=== PATIENT | female | born 1990 ===

== ENCOUNTER 2019-08-17 09:05 | Emergency (ER) | payer MEDICAID ==
--- NOTE | 2019-08-17 09:39 | Emergency Department Report ---
Minor Respiratory - HPI Chief Complaint: Headache Stated Complaint: LFT SIDE NUMB/HEADACHE Time Seen by Provider: 08/17/19 09:27 Duration: 2 Days Pain Location: Facial, Other (headache left forehead and religious) Severity: severe Minor Respiratory: Yes Rhinorrhea, Yes Able to Tolerate Fluids, Yes Ear Pain, Yes Cough, Yes Fever (no temperature taken and she feels that she has chills), No Sore Throat, No Sick Contacts, No Hemoptysis, No Chest Pain, No Shortness of Breath Other History: This is a 29-year-old female here report that she is 4 weeks and and she has an appointment at [facility] and she feels like she has the flu with headache on the left side of her face, forehead and religious area and generalized body ache, she reports that last menstrual period was 07/02/2019. vitamins started. Denies any abdominal pain, back pain, urinary burning, frequency or urgency or any vaginal bleeding. Patient reports that she feels congested like she has the flu. Denies any neck stiffness or sore throat. Headache and facial pain is achy and constant. No medication taken prior to coming to the emergency room ED Review of Systems ROS: Stated complaint: LFT SIDE NUMB/HEADACHE Other details as noted in HPI Constitutional: chills. denies: fever ENT: ear pain. denies: throat pain (no) Respiratory: cough. denies: shortness of breath, SOB with exertion, SOB at rest, stridor, wheezing Cardiovascular: denies: chest pain, palpitations, dyspnea on exertion, edema, syncope, paroxysmal nocturnal dyspnea Gastrointestinal: denies: abdominal pain, nausea, vomiting, constipation, hematemesis, hematochezia Musculoskeletal: arthralgia. denies: back pain, joint swelling, myalgia Skin: denies: rash Neurological: denies: headache, numbness, paresthesias, confusion, abnormal gait, vertigo ED Past Medical Hx - Past Medical History Previous Medical History?: Yes Hx Diabetes: Yes - Surgical History Past Surgical History?: No - Family History Family history: no significant - Social History Smoking Status: Never Smoker Substance Use Type: None - Medications Home Medications: Home Medications Medication Instructions Recorded Confirmed Last Taken Type Acetaminophen [Acetaminophen TAB] 500 mg PO Q8HR PRN #12 tablet 08/17/19 Unknown Rx Amoxicillin [Amoxicillin TAB] 875 mg PO BID Days #20 tablet 08/17/19 Unknown Rx Loratadine [Claritin] 10 mg PO QDAY 7 Days #7 tablet 08/17/19 Unknown Rx Minor Respiratory Exam - Exam General: Vital signs noted. No distress. Alert and acting appropriately. 29-year-old patient well-nourished well-developed in no acute distress. HEENT: Yes Moist Mucous Membranes, Yes Rhinorrhea (enabled turbinates are enlarged with clear drainage), Yes Frontal Tenderness (left), Yes Maxillary Tenderness (left), No Pharyngeal Erythema, No Pharyngeal Exudates, No Conjuctival Injection Ear: Neither TM Bulge (bilateral middle ear effusion), Neither TM Erythema, Neither EAC Pain, Neither EAC Discharge Neck: Yes Supple (full range of motion), No Adenopathy Lungs: Yes Good Air Exchange, Yes Cough (dry cough), No Wheezes, No Ronchi, No Stridor, No Labored Respirations, No Retractions, No Use of Accessory Muscles, No Other Abnormal Lung Sounds Heart: Yes Regular, No Murmur Abdomen: Yes Normal Bowel Sounds (nontender to palpate and no CVA tenderness.), No Tenderness, No Peritoneal Signs Skin: Yes Edema, No Rash Neurologic: Alert and oriented, no deficits. Normal exam. Patient is alert and oriented 3 GCS of 15, normal gait, normal speech and no facial asymmetry. Musculoskeletal: Unremarkable. No cce. + 2 pulses in all extremities, no neurovascular compromise ED Course Vital Signs 08/17/19 09:19 Temperature 98.2 F Pulse Rate 94 H Respiratory 20 Rate Blood Pressure 129/50 O2 Sat by Pulse 98 Oximetry - Reevaluation(s) Reevaluation #1: 08/17/19 10:38 Patient was given Tylenol 3 2 tablets, Benadryl 50 mg by mouth, and Decadron 10 mg IM in emergency room. Patient says she is feeling better. ED Medical Decision Making - Medical Decision Making This is a 29-year-old female patient that is 4 weeks and here with sinusitis with facial pain and headache. Patient states was given Decadron in emergency room along with Tylenol No. 3 2 tablets and Benadryl 50 mg by mouth. Up and evaluation she says she is feeling a lot better. Headache is on 11/30 and no facial pain. I explained to patient her diagnosis that she needs to follow- up with [facility] to call tomorrow to schedule an appointment. Patient discharged home with prescription for Claritin and, amoxicillin and instructed to flush her sinuses out with saline nasal spray 3 times a day. She voiced understanding and discharged home in stable condition - Differential Diagnosis sinusitis versus rhinitis versus migraine headache Critical care attestation.: If time is entered above; I have spent that time in minutes in the direct care of this critically ill patient, excluding procedure time. ED Disposition Clinical Impression: Sinusitis, acute Qualifiers: Sinusitis location: pansinusitis Recurrence: non-recurrent Qualified Code(s): J01.40 - Acute pansinusitis, unspecified Headache Qualifiers: Headache type: unspecified Headache chronicity pattern: acute headache Intractability: not intractable Qualified Code(s): R51 - Headache Disposition: DC- TO HOME OR SELFCARE Is pt being admited?: No Does the pt Need Aspirin: No Condition: Stable Instructions: Sinusitis (ED) Additional Instructions: Please take medication as prescribed Increasing fluid intake Flush nostrils with nasal saline wash If you condition worsens, return to the emergency room. Referrals: [facility] [Outside] - 08/18/19 PRIMARY CARE, [Primary Care Provider] - 08/18/19 Forms: Work/School Release Form(ED)
[2019-08-17] MEDS ORDERED: ACETAMINOPHEN W/CODEINE 300-30 MG TAB PO ONE (09:40)
[2019-08-17] MEDS ORDERED: AMOXICILLIN 500 MG CAP PO ONE (09:42)
[2019-08-17] MEDS ORDERED: diphenhydrAMINE 50 MG CAP PO NR (10:00)
[2019-08-17] MEDS ORDERED: diphenhydrAMINE 25 MG CAP PO ONE (10:12)
[2019-08-17 12:31] VITALS: BP 115/83
== END 2019-08-17 12:31 | disposition home or self-care (01) ==
LOC: ED 09:05
DX: J01.90 Acute sinusitis, unspecified (principal); E11.9 Type 2 diabetes mellitus without complications; Z79.899 Other long term (current) drug therapy

== ENCOUNTER 2020-03-15 10:26 | Inpatient (IN) | payer MEDICAID ==
[2020-03-15] MEDS ORDERED: TERBUTALINE 1 MG/1 ML INJ SUB-Q PRN (10:54)
[2020-03-15] MEDS ORDERED: LIDOCAINE (2%) 20 MG/1 ML VIAL 20 ML MDV INFILTRATI ONE (10:54)
[2020-03-15] MEDS ORDERED: ePHEDrine SULFATE 50 MG/1 ML INJ IV PRN (10:54)
[2020-03-15] MEDS ORDERED: AMPICILLIN/NS 2 GM/100 ML 2 GM/100 ML BAG IV ONE (10:54)
[2020-03-15] MEDS ORDERED: OXYTOCIN 20 UNIT/1000ML DRIP 20 UNITS/1,000 ML BAG IV SCH (11:00)
[2020-03-15] MEDS ORDERED: OXYTOCIN DRIP 30 UNITS/500 ML BAG IV SCH (11:00)
[2020-03-15] MEDS ORDERED: ONDANSETRON 4 MG/2 ML INJ IV PRN (11:30)
--- NOTE | 2020-03-15 12:05 | History and Physical Report ---
History of Present Illness Date of examination: 03/15/20 Chief complaint: decreased movement x2 days, possible leaking of fluid since 0900 History of present illness: EDC Calculations LMP: 04/07/2020 Past History : 7 Term Births: 4 Premature Births: 1 Living Children: 4 Para: 4 Mult. Births: 0 Prev : 0 Aborta: 0 Elect. Ab: 0 Spont. Ab: 1 Ectopics: 0 # 1 Delivery date: 12/28/2005 Weeks Gestation: 40 labor: no Delivery type: Delivery location: [place] Infant Sex: Female weight: 6#0oz Name: Ivory # 2 Delivery date: 2006 Weeks Gestation: 7 Delivery type: SAB Delivery location: [place] # 3 Delivery date: 02/28/2011 Weeks Gestation: 20 labor: yes Sex: Male # 4 Delivery date: 08/19/2012 Weeks Gestation: 38 labor: no Delivery type: Anesthesia type: epidural Delivery location: [place] Inf[place] Sex: Male weight: 7#0oz Name: Nicholas # 5 Delivery date: 01/13/2014 Weeks Gestation: 38 labor: no Delivery type: Anesthesia type: epidural Delivery location: [place] Inf[facility] Sex: Female weight: 7# Name: Inocencia # 6 Delivery date: 03/18/2016 Weeks Gestation: 38 labor: no Delivery type: Anesthesia type: none Delivery location: [place] Inf[facility] Sex: Male weight: 8#11 Name: Mati Past Medical History: Diabetes Sinus infection with fever- July 2019 Past Surgical History: Bilateral foot surgery- 5th toe Past Medical History Diabetes: yes Surgery (Non-obgyn hospitalist physician): Bilateral foot surgery- 5th toe Abnormal PAP: negative NILTON Exposure: negative Infertility: negative Uterine Anomaly: negative Uterine Surgery (not C/S): negative Other Gynecologic Problems: negative Family Hx: DM- uncle, mother HTN- mother, maternal aunt Social Hx: Single, 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 of genital herpes: no Partner hx. of genital herpes: no Rash, Viral, or Febrile illness since last LMP? yes Varicella/Chicken Pox Status: Immunized TB Risk: yes Infection History Comments: TB + (2006)- 9 months of antibiotics, chest x-ray every 7 years- do not remember when she had her last xray Genetic History Congenital Heart Defect: Mom: no Dad: unknown Leana Disease: Mom: no Dad: unknown Thalassemia Mom: no Dad: unknown Neural Tube Defect Mom: no Dad: unknown Down's Syndrome Mom: no Dad: unknown Keith-Sachs Mom: no Dad: unknown Sickle Cell Disease/Trait Mom: no Dad: unknown Hemophilia Mom: no Dad: unknown Muscular Dystrophy Mom: no Dad: unknown Cystic Fibrosis Mom: no Dad: unknown Summers Chorea Mom: no Dad: unknown Mental Retardation Mom: no Dad: unknown Fragile X Mom: no Dad: unknown Other Genetic/Chromosomal Disorder Mom: no Dad: unknown Child w/other defect Mom: no Dad: unknown Enviromental Exposures Xray Exposure: no Medication, drug, or alcohol use since LMP: yes Chemical/Other Exposure: no Exposure to Cat Liter: no Hx of Parvovirus (Fifth Disease): no Occupational Exposure to Children: none Current Allergies (reviewed today): No known allergies Past History Past Medical History: other Past Surgical History: other (see HPI) GEOLOGY INSTRUCTOR History: other (see HPI) Family/Genetic History: other (see HPI) - Obstetrical History Expected Date of Delivery: 04/07/20 Actual Gestation: 36 Week(s) 5 Day(s) : 7 Para: 5 Hx # Term Pregnancies: 4 Number of Pregnancies: 1 Spontaneous Abortions: 1 Induced : 0 Number of Living Children: 4 Medications and Allergies Allergies Allergy/AdvReac Type Severity Reaction Status Date / Time No Known Allergies Allergy Unverified 08/17/19 09:10 Home Medications Medication Instructions Recorded Confirmed Last Taken Type Amoxicillin [Amoxicillin TAB] 875 mg PO BID 10 Days #20 tablet 08/17/19 03/15/20 Unknown Rx Loratadine (Nf) [Claritin] 10 mg PO QDAY 7 Days #7 tablet 08/17/19 03/15/20 Unknown Rx RX: Acetaminophen [Acetaminophen 500 mg PO Q8HR PRN #12 tablet 08/17/19 03/15/20 Unknown Rx TAB] Active Meds: Active Medications Ephedrine Sulfate (Ephedrine Sulfate) 10 mg IV Q2M PRN PRN Reason: Hypotension Fentanyl (Sublimaze) 100 mcg IV Q2H PRN PRN Reason: Pain,Severe (7-10) LABOR PAIN Oxytocin/Sodium Chloride (Pitocin/Ns 20 Unit/1000ml Drip) 20 units in 1,000 mls @ 125 mls/hr IV DIRECT MARIEL Oxytocin/Sodium Chloride (Pitocin/Ns 30 Unit/500ml) 30 units in 500 mls @ 4 mls/hr IV TITR MARIEL; Protocol Lactated Ringer's (Lactated Ringers) 1,000 mls @ 125 mls/hr IV DIRECT MARIEL Ampicillin Sodium (Ampicillin/Ns 1 Gm/50 Ml) 1 gm in 50 mls @ 100 mls/hr IV Q4H MARIEL; Protocol Mineral Oil (Mineral Oil) 30 ml PO QHS PRN PRN Reason: Constipation Ondansetron HCl (Zofran) 4 mg IV Q8H PRN PRN Reason: Nausea And Vomiting Terbutaline Sulfate (Brethine) 0.25 mg SUB-Q ONCE PRN PRN Reason: Hyperstimulation/Hypertonicity Stop: 03/15/20 23:59 Review of Systems All systems: negative - Vital Signs Vital signs: Vital Signs Temp Resp 97.9 F 18 03/15/20 11:22 03/15/20 11:22 Temp Pulse Resp BP Pulse Ox 97.9 F 77 18 120/59 03/15/20 11:22 03/15/20 11:35 03/15/20 11:22 03/15/20 11:35 - Physical Exam Breasts: Positive: normal Cardiovascular: Regular rate Lungs: Positive: Clear to auscultation, Normal air movement Abdomen: Positive: normal appearance, soft, normal bowel sounds Genitourinary (Female): Positive: normal external genitalia, normal perenium Vulva: both: normal Vagina: Positive: normal moisture Uterus: Positive: normal size, normal contour Anus/Rectum: Positive: normal perianal skin Extremities: Positive: normal Deep Tendon Reflex Grade: Normal +2 - Obstetrical FHR: category 1 Uterine Contraction Monitor Mode: External Cervical Dilatation: 1 Cervical Effacement Percentage: 50 station: -2 Uterine Contraction Frequency (min): irritability Uterine Tone Measurement Phase: Resting Uterine Contraction Intensity: Mild Results Result Diagrams: 03/15/20 11:48 03/15/20 11:48 Abnormal lab results 03/15/20 Range/Units 11:54 POC Glucose 109 H (70-105) All other labs normal. Assessment and Plan patient c/o leaking vaginal fluid since 0900 today, none noted during SVE. Per Dr. Hammer with [facility], pt is now dx with pre-e and should be delivered. GBS neg. Admission orders in EMR, will Induce with Pitocin. Epidural when patient is making cervical change. - Patient Problems (1) Diabetes mellitus type 2 in obese Current Visit: Yes Status: Acute Plan to address problem: on insulin will monitor blood sugars q2 hrs (2) Pre-eclampsia Current Visit: Yes Status: Acute Qualifiers: Trimester: third trimester Qualified Code(s): O14.93 - Unspecified pre- eclampsia, third trimester Plan to address problem: IOL pre-e labs Mag sulfate during labor and 24hr post delivery (3) 36 weeks gestation of Current Visit: Yes Status: Acute (4) Decreased movement Current Visit: Yes Status: Acute Qualifiers: Fetus number: single or unspecified fetus Trimester: third trimester Qualified Code(s): O36.8130 - Decreased movements, third trimester, not applicable or unspecified
[2020-03-15] MEDS: LACTATED RINGERS 1,000 ML IV SCH ×3 (12:10→23:04)
[2020-03-15 12:14] LABS: Hematocrit 30.1 % (30.3-42.9); Hemoglobin 9.9 gm/dl (10.1-14.3); Mean Corpuscular HGB Conc 33 % (30-34); Mean Corpuscular Volume 82 fl (79-97); Platelet Count 275 K/mm3 (140-440); Red Blood Count 3.69 M/mm3 (3.65-5.03); Red Cell Distribution Width 14.8 % (13.2-15.2)
[2020-03-15 12:27] LABS: Alanine Aminotransferase 7 units/L (7-56); Uric Acid 4.2 mg/dL (3.5-7.6)
[2020-03-15] MEDS: fentaNYL 100 MCG/2 ML INJ IV PRN ×2 (12:53→21:02)
[2020-03-15] MEDS ORDERED: AMPICILLIN/NS 1 GM/50 ML 1 GM/50 ML BAG IV SCH (15:00)
--- NOTE | 2020-03-15 17:18 | Progress Note ---
Assessment and Plan no change in SVE since admission, pitocin infusing @ 20mU with regular ctx 1-3 minutes. will d/c pitocin tonight, allow diet and then do low dose pitocin overnight. plan discussed with patient, all questions addressed. pt denies CHEUNG, epigastric pain or visual changes. - Patient Problems (1) Diabetes mellitus type 2 in obese Current Visit: Yes Status: Acute Plan to address problem: on insulin will monitor blood sugars fasting, AC & HS consistent carb diet for dinner (2) Pre-eclampsia Current Visit: Yes Status: Acute Qualifiers: Trimester: third trimester Qualified Code(s): O14.93 - Unspecified pre- eclampsia, third trimester Plan to address problem: IOL pre-e labs Mag sulfate during labor and 24hr post delivery (3) 36 weeks gestation of Current Visit: Yes Status: Acute (4) Decreased movement Current Visit: Yes Status: Acute Qualifiers: Fetus number: single or unspecified fetus Trimester: third trimester Qualified Code(s): O36.8130 - Decreased movements, third trimester, not applicable or unspecified Subjective - Subjective Date of service: 03/15/20 Principal diagnosis: IUP @ 36+5wks: IOL for mild pre-e, DM type 2 Interval history: EDC Calculations LMP: 04/07/2020 Past History : 7 Term Births: 4 Premature Births: 1 Living Children: 4 Para: 4 Mult. Births: 0 Prev : 0 Aborta: 0 Elect. Ab: 0 Spont. Ab: 1 Ectopics: 0 # 1 Delivery date: 12/28/2005 Weeks Gestation: 40 labor: no Delivery type: Delivery location: [place] Infant Sex: Female weight: 6#0oz Name: Ivory # 2 Delivery date: 2006 Weeks Gestation: 7 Delivery type: SAB Delivery location: [place] # 3 Delivery date: 02/28/2011 Weeks Gestation: 20 labor: yes Sex: Male # 4 Delivery date: 08/19/2012 Weeks Gestation: 38 labor: no Delivery type: Anesthesia type: epidural Delivery location: [place] Infant Sex: Male weight: 7#0oz Name: Nicholas # 5 Delivery date: 01/13/2014 Weeks Gestation: 38 labor: no Delivery type: Anesthesia type: epidural Delivery location: [place] Sex: Female weight: 7# Name: Inocencia # 6 Delivery date: 03/18/2016 Weeks Gestation: 38 labor: no Delivery type: Anesthesia type: none Delivery location: [place] Infant Sex: Male weight: 8#11 Name: Mati Past Medical History: Diabetes Sinus infection with fever- July 2019 Past Surgical History: Bilateral foot surgery- 5th toe Past Medical History Diabetes: yes Surgery (Non-restaurant area director): Bilateral foot surgery- 5th toe Abnormal PAP: negative NILTON Exposure: negative Infertility: negative Uterine Anomaly: negative Uterine Surgery (not C/S): negative Other Gynecologic Problems: negative Family Hx: DM- uncle, mother HTN- mother, maternal aunt Social Hx: Single, 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 of genital herpes: no Partner hx. of genital herpes: no Rash, Viral, or Febrile illness since last LMP? yes Varicella/Chicken Pox Status: Immunized TB Risk: yes Infection History Comments: TB + (2006)- 9 months of antibiotics, chest x-ray every 7 years- do not remember when she had her last xray Genetic History Congenital Heart Defect: Mom: no Dad: unknown Leana Disease: Mom: no Dad: unknown Thalassemia Mom: no Dad: unknown Neural Tube Defect Mom: no Dad: unknown Down's Syndrome Mom: no Dad: unknown Keith-Sachs Mom: no Dad: unknown Sickle Cell Disease/Trait Mom: no Dad: unknown Hemophilia Mom: no Dad: unknown Muscular Dystrophy Mom: no Dad: unknown Cystic Fibrosis Mom: no Dad: unknown Sutter Chorea Mom: no Dad: unknown Mental Retardation Mom: no Dad: unknown Fragile X Mom: no Dad: unknown Other Genetic/Chromosomal Disorder Mom: no Dad: unknown Child w/other defect Mom: no Dad: unknown Enviromental Exposures Xray Exposure: no Medication, drug, or alcohol use since LMP: yes Chemical/Other Exposure: no Exposure to Cat Liter: no Hx of Parvovirus (Fifth Disease): no Occupational Exposure to Children: none Current Allergies (reviewed today): No known allergies Patient reports: no new complaints Objective - Vital Signs Vital Signs: Vital Signs - 12hr 05/03/15/20 03/15/20 11:22 11:35 12:53 Temperature 97.9 F Pulse Rate 77 Respiratory 18 18 Rate Blood Pressure 120/59 Blood Pressure [Left] O2 Sat by Pulse Oximetry 03/15/20 03/15/20 03/15/20 13:15 14:18 15:02 Temperature 97.9 F Pulse Rate 73 66 82 Respiratory 18 Rate Blood Pressure 125/63 131/71 134/65 Blood Pressure 131/71 [Left] O2 Sat by Pulse 100 Oximetry 03/15/20 03/15/20 03/15/20 15:31 16:01 16:11 Temperature 97.9 F Pulse Rate 74 73 73 Respiratory 18 Rate Blood Pressure 134/62 126/61 Blood Pressure 126/61 [Left] O2 Sat by Pulse 100 Oximetry 03/15/20 03/15/20 17:11 17:13 Temperature 97.9 F Pulse Rate 67 67 Respiratory 18 Rate Blood Pressure 125/66 Blood Pressure 125/66 [Left] O2 Sat by Pulse Oximetry - Exam Breasts: normal Cardiovascular: Regular rate Lungs: Clear to auscultation, Normal air movement Abdomen: Present: normal appearance, soft Vulva: both: normal Uterus: Present: normal FHR: category 1 Uterine Contraction Monitor Mode: External Cervical Dilatation: 1 Cervical Effacement Percentage: 50 station: -3 Uterine Contraction Frequency (min): 1-3 Uterine Contraction Duration: 60 Uterine Contraction Pattern: Regular Uterine Tone Measurement Phase: Contraction Uterine Contraction Intensity: Mild Extremities: normal Deep Tendon Reflex Grade: Normal +2 - Labs Labs: Abnormal Labs 03/15/20 03/15/20 03/15/20 11:48 11:48 11:54 Hgb 9.9 L Hct 30.1 L MCH 27 L Creatinine 0.4 L POC Glucose 109 H Lactate Dehydrogenase 351 H 03/15/20 03/15/20 03/15/20 14:02 14:46 16:27 Hgb Hct MCH Creatinine POC Glucose 66 L 61 L 109 H Lactate Dehydrogenase Laboratory Results - last 24 hr 03/15/20 03/15/20 03/15/20 11:48 11:48 11:48 WBC 8.0 RBC 3.69 Hgb 9.9 L Hct 30.1 L MCV 82 MCH 27 L MCHC 33 RDW 14.8 Plt Count 275 Creatinine Estimated GFR POC Glucose Uric Acid AST ALT Lactate Dehydrogenase Syphilis IgG Antibody Non-reactive Blood Type A NEGATIVE Antibody Screen Negative 03/15/20 03/15/20 03/15/20 11:48 11:54 14:02 WBC RBC Hgb Hct MCV MCH MCHC RDW Plt Count Creatinine 0.4 L Estimated GFR > 60 POC Glucose 109 H 66 L Uric Acid 4.2 AST 23 ALT 7 Lactate Dehydrogenase 351 H Syphilis IgG Antibody Blood Type Antibody Screen 03/15/20 03/15/20 14:46 16:27 WBC RBC Hgb Hct MCV MCH MCHC RDW Plt Count Creatinine Estimated GFR POC Glucose 61 L 109 H Uric Acid AST ALT Lactate Dehydrogenase Syphilis IgG Antibody Blood Type Antibody Screen
[2020-03-15] MEDS ORDERED: OXYTOCIN DRIP 30,000 MILLIUNITS/500 ML BAG IV ONE (19:00)
[2020-03-15] MEDS ORDERED: ZOLPIDEM 5 MG TAB PO ONE (19:46)
[2020-03-15] MEDS ORDERED: MINERAL OIL 30 ML ORAL LIQD PO PRN (22:00)
[2020-03-16] MEDS: fentaNYL 100 MCG/2 ML INJ IV PRN (01:03)
[2020-03-16] MEDS ORDERED: DEXMEDETOMIDINE 200 MCG/2 ML VIAL IV ONE (01:21)
[2020-03-16] MEDS ORDERED: fentaNYL-BUPIV 2 MCG/ML-0.125% 200 MCG/100 ML BAG EPIDURAL ONE (01:21)
--- NOTE | 2020-03-16 01:40 | Anesthesia Consultation ---
Anesthesia Consult and Med Hx Date of service: 03/16/20 - Airway Anesthetic Teeth Evaluation: Good ROM Head & Neck: Adequate Mental/Hyoid Distance: Adequate Mallampati Class: Class II Intubation Access Assessment: Probably Good - Pulmonary Exam CTA: Yes - Cardiac Exam Cardiac Exam: RRR - Pre-Operative Health Status ASA Pre-Surgery Classification: ASA3 Proposed Anesthetic Plan: Epidural - Pulmonary Hx Asthma: No - Cardiovascular System Hx Hypertension: Yes - Central Nervous System Hx Seizures: No Hx Psychiatric Problems: No - Endocrine Hx Renal Disease: No Hx Insulin Dependent Diabetes: Yes Hx Hypothyroidism: No Hx Hyperthyroidism: No - Hematic Hx Anemia: No Hx Sickle Cell Disease: No - Other Systems Hx Alcohol Use: No Hx Obesity: Yes
[2020-03-16] MEDS ORDERED: ePHEDrine SULFATE 50 MG/1 ML INJ IV PRN (01:41)
[2020-03-16] MEDS ORDERED: NALOXONE 2 MG/2 ML INJ IV PRN (01:41)
--- NOTE | 2020-03-16 01:41 | Progress Note ---
Labor Epidural - Labor Epidural Start Time: :29 Stop Time: :32 Performed by:: RADHA FERMIN Procedure: Patient is requesting epidural for labor pain. H&P, and labs reviewed. Procedure explained, questions answered, consent obtained. Patient in sitting position with blood pressure cuff and pulse ox on and working. Timeout performed immediately before start of procedure. Sterile betadine prep/drape. 3 mL 1% lidocaine skin wheal at L[3]-L[4]. 18-gauge Touhy epidural needle advanced to [id number] with saline at [7] cm. 27-gauge spinal needle advanced until clear, free-flowing CSF. Intrathecal dexmedetomidine [10] mcg administered and needle removed. Epidural catheter advanced to [12] cm, negative aspiration for blood and csf, negative test dose 3 ml 1.5% lidocaine with epinephrine. Sterile steri-strips and tegaderm applied, followed by tape reinforcement. Patient tolerated procedure well.
[2020-03-16] MEDS: LACTATED RINGERS 1,000 ML IV SCH ×2 (01:50→06:51)
[2020-03-16] MEDS ORDERED: fentaNYL-BUPIV 2 MCG/ML-0.125% 200 MCG/100 ML BAG EPIDURAL SCH (02:00)
[2020-03-16] MEDS ORDERED: SODIUM CHLORIDE 0.9% 1000 ML 1,000 ML ONE (04:59)
[2020-03-16] MEDS ORDERED: MAGNESIUM SULFATE 0 GM/0 ML BAG IV ONE (05:08)
[2020-03-16] MEDS ORDERED: MAGNESIUM SULFATE 40GM/1000ML 40 GM/1,000 ML BAG IV ONE (05:16)
--- NOTE | 2020-03-16 06:22 | Procedure Note ---
OB Delivery Note - Delivery Date of Delivery: 03/16/20 ( female) Stereoptic Projection Topographer: ADRIANE ALLEN Estimated blood loss: 200cc - Vaginal Delivery presentation: vertex Delivery position: OA (YUE, left shoulder anterior) Intrapartum events: preeclampsia, extend. tachycardia, mult.variable deceleratio Delivery induction: oxytocin Delivery augmentation: pitocin Delivery monitor: external FHT, external uterine Route of delivery: Delivery placenta: spontaneous Delivery cord: 3 umbilical vessels Episiotomy: none Delivery laceration: none Anesthesia: epidural Delivery comments: baby del YUE, left shoulder anterior. no shoulder dystocia, anterior shoulder del with gentle downward traction. audible pop heard as left shoulder came under the pubic bone. NICU and AGRICULTURAL SCIENCES PROFESSOR in attendance. 3 vessel cord clamped and cut, taken to warmer for assessment. Cord blood collected. placenta del intact and complete, placenta sent to pathology. no lacerations to repair. EBL 200. apgars 2/6/6, taken to NICU for observation and sugar regulation. wt 8#11oz. All counts correct, mother remains in stable condition with mag sulfate infusing @ 2gm/hr. - A at 1 minute: 2 at 5 minutes: 6 Gender: Female (8#11oz, 10min 6)
[2020-03-16] MEDS ORDERED: diphenhydrAMINE 25 MG CAP PO PRN (11:07)
[2020-03-16] MEDS ORDERED: OXYTOCIN 20 UNIT/1000ML DRIP 20 UNITS/1,000 ML BAG IV SCH (11:07)
[2020-03-16] MEDS ORDERED: PROMETHAZINE 25 MG TAB PO PRN (11:07)
[2020-03-16] MEDS ORDERED: WITCH HAZEL/ GLYCERIN PAD TP PRN (11:07)
[2020-03-16] MEDS ORDERED: ACETAMINOPHEN 325 MG TAB PO PRN (11:07)
[2020-03-16] MEDS ORDERED: BENZOCAINE/MENTHOL 20/0.5% TOP SPRAY 56 GM TP PRN (11:07)
[2020-03-16] MEDS ORDERED: LANOLIN/ZINC/DIMETHICONE (LANSINOH) 7 GM TP PRN (11:07)
[2020-03-16] MEDS ORDERED: DEXTROSE 50% IN WATER (25GM) 50 ML SYRINGE IV PRN (11:16)
[2020-03-16] MEDS ORDERED: MAGNESIUM SULFATE 40GM/1000ML 40 GM/1,000 ML BAG IV SCH (12:00)
[2020-03-16] MEDS ORDERED: INSULIN REGULAR, HUMAN 100 UNITS/1 ML SUB-Q SCH ×2 (12:00→22:00)
[2020-03-16] MEDS ORDERED: IBUPROFEN 600 MG TAB PO SCH (12:00)
[2020-03-16] MEDS: PRENATAL VIT27-FE FUMARATE-FOLIC ACID VIT TAB PO SCH (12:50)
[2020-03-16] MEDS: INSULIN REGULAR, HUMAN 100 UNITS/1 ML SUB-Q SCH ×2 (14:40→21:14)
[2020-03-16] MEDS: IBUPROFEN 800 MG TAB PO SCH (18:53)
[2020-03-16 20:15] LABS: Hematocrit 32.4 % (30.3-42.9); Hemoglobin 10.6 gm/dl (10.1-14.3)
[2020-03-16] MEDS ORDERED: MAGNESIUM HYDROXIDE (MOM) ORAL LIQD UDC PO PRN (22:00)
[2020-03-17] MEDS: IBUPROFEN 800 MG TAB PO SCH ×3 (02:51→23:33)
--- NOTE | 2020-03-17 07:06 | Progress Note ---
Assessment and Plan - Patient Problems (1) Diabetes mellitus type 2 in obese Onset Date: ~03/17/20 Current Visit: Yes Status: Acute Plan to address problem: Will continue insulin , BS checks, sliding scale continue on / (2) (normal spontaneous vaginal delivery) Onset Date: ~03/16/20 Current Visit: Yes Status: Acute Plan to address problem: Pt will be transferred to /B with routine PP pathway. (3) Pre-eclampsia Onset Date: ~03/17/20 Current Visit: Yes Status: Acute Qualifiers: Trimester: third trimester Qualified Code(s): O14.93 - Unspecified pre- eclampsia, third trimester Plan to address problem: MGSO4 completed Will continue to closely monitor BP. Pt denies CHEUNG, blood pressure, chest pain. DTRs wnl 1+ LE edema Subjective - Subjective Date of service: 03/17/20 (pt in good spirits; no c/o voiced) Principal diagnosis: Day #1 s/p ;completed MGSOa X 24hr, mild pre-e, DM type 2 Patient reports: voiding normally, pain well controlled, ambulating normally : doing well Objective - Vital Signs Latest vital signs: Vital Signs Temp Pulse Resp BP BP Pulse Ox 03/17/20 06:54 71 100 03/17/20 06:49 81 98 03/17/20 06:44 73 99 03/17/20 06:39 79 99 03/17/20 06:34 75 98 03/17/20 06:33 69 134/64 03/17/20 06:29 69 100 03/17/20 06:24 82 99 03/17/20 06:19 70 99 03/17/20 06:14 93 H 100 03/17/20 06:09 77 100 03/17/20 06:04 77 100 03/17/20 06:00 76 124/59 03/17/20 05:59 86 97 03/17/20 05:54 78 98 03/17/20 05:49 76 100 03/17/20 05:44 73 99 03/17/20 05:39 93 H 98 03/17/20 05:34 82 98 03/17/20 05:29 75 100 03/17/20 05:24 76 100 03/17/20 05:19 79 100 03/17/20 05:14 81 99 03/17/20 05:09 79 99 05 05:04 59 L 98 05 04:59 75 99 05 04:54 99 H 98 03/17/20 04:49 70 96 05 04:44 66 97 05 04:39 66 97 03/17/20 04:34 66 97 05 04:29 72 98 05 04:24 72 98 03/17/20 04:19 69 98 05 04:14 74 99 05 04:09 89 98 03/17/20 04:04 90 99 03/17/20 03:59 83 100 05 03:54 77 100 03/17/20 03:49 86 99 03/17/20 03:44 85 100 03/17/20 03:39 80 100 03/17/20 03:34 95 H 99 03/17/20 03:29 68 97 03/17/20 03:24 65 98 05 03:19 66 98 03/17/20 03:14 70 98 03/17/20 03:09 71 97 03/17/20 03:04 65 99 05 02:59 77 98 05 02:54 75 97 03/17/20 02:51 18 03/17/20 02:49 67 97 03/17/20 02:44 65 98 03/17/20 02:39 66 98 03/17/20 02:34 69 98 03/17/20 02:29 78 98 03/17/20 02:24 61 99 03/17/20 02:19 78 98 03/17/20 02:14 69 98 03/17/20 02:09 79 95 03/17/20 02:04 75 96 05 01:59 78 95 05 01:54 75 96 05 01:49 76 96 03/17/20 01:44 76 96 05 01:39 74 97 03/17/20 01:34 66 98 03/17/20 01:29 69 98 05 01:24 106 H 98 03/17/20 01:23 80 94 05 01:19 82 95 05 01:15 72 94 05 01:14 71 97 05 01:09 66 97 05 01:04 73 97 05 00:59 86 97 05 00:54 71 96 05 00:49 74 97 05 00:44 70 97 05 00:39 74 97 05 00:34 69 97 05 00:29 72 98 05 00:24 74 98 05 00:19 84 99 05 00:14 93 H 99 05 00:10 93 H 94 05 00:09 79 95 05 00:04 70 97 05 23:59 66 97 05 23:57 85 153/74 05 23:54 77 97 05 23:49 71 97 05 23:44 69 98 05 23:42 75 134/69 05 23:39 76 97 05 23:34 75 98 05 23:29 85 98 05 23:27 82 133/76 05 23:24 86 98 05 23:19 93 H 98 05 23:14 82 161/75 99 05 23:09 86 99 05 23:04 87 99 05 22:59 74 98 05 22:54 83 98 05 22:49 82 99 05 22:44 83 99 0520 22:39 84 98 0520 22:34 95 H 99 0520 22:29 99 H 98 0520 22:24 88 99 0520 22:19 96 H 98 05 22:14 93 H 99 05 22:09 83 99 0520 22:04 81 98 0520 21:59 87 99 0520 21:54 84 99 0520 21:49 89 99 0520 21:44 82 99 0520 21:39 78 99 05/27/20 21:34 85 99 05/27/20 21:29 67 99 05/27/20 21:24 83 99 05/27/20 21:19 74 99 05/27/20 21:14 69 100 05/27/20 21:12 69 127/59 05/27/20 21:09 81 99 05/27/20 21:04 87 99 05/27/20 20:59 83 100 05/27/20 20:57 75 120/56 05/27/20 20:54 94 H 99 05/27/20 20:49 88 99 05/27/20 20:44 82 100 05/27/20 20:42 91 H 149/75 05/27/20 20:39 79 99 05/27/20 20:34 81 99 05/27/20 20:29 67 98 05/27/20 20:27 68 133/69 05/27/20 20:24 67 98 05/27/20 20:19 66 98 05/27/20 20:14 100 H 98 05/27/20 20:12 77 132/65 05/27/20 20:09 66 98 05/27/20 20:04 63 98 05/27/20 19:59 70 98 05/27/20 19:57 86 128/65 05/27/20 19:54 87 99 05/27/20 19:53 18 05/27/20 19:49 70 97 05/27/20 19:44 64 97 05/27/20 19:42 65 124/57 05/27/20 19:39 65 97 05/27/20 19:34 65 97 05/27/20 19:29 63 97 05/27/20 19:27 63 126/62 05/27/20 19:24 63 98 05/27/20 19:19 86 99 05/27/20 19:14 87 99 05/27/20 19:12 66 129/65 05/27/20 19:09 71 97 05/27/20 19:04 69 98 05/27/20 18:59 85 99 05/27/20 18:57 77 138/69 05/27/20 18:54 73 99 05/27/20 18:49 72 98 05/27/20 18:44 73 99 05/27/20 18:42 75 139/67 05/27/20 18:39 81 99 05/27/20 18:34 80 98 05//20 18:29 72 99 05/20 18:27 81 137/64 05/20 18:24 91 H 98 0520 18:19 74 97 05/20 18:14 82 99 05/20 18:12 83 130/63 05//20 18:09 95 H 99 0520 18:03 88 99 0520 17:58 81 99 0520 17:57 73 146/74 05//20 17:53 79 99 05/20 17:48 81 99 05/20 17:43 75 100 05/20 17:42 80 127/60 0520 17:38 84 100 0520 17:33 75 100 0520 17:28 84 99 0520 17:27 91 H 134/61 0520 17:23 98 H 100 0520 17:18 95 H 100 0520 17:13 82 99 0520 17:12 77 152/69 0520 17:08 85 99 0520 17:03 93 H 100 0520 16:58 90 99 0520 16:57 86 140/67 0520 16:53 72 98 0520 16:48 98 H 99 0520 16:43 83 99 0520 16:42 86 140/66 0520 16:38 86 99 0520 16:33 87 100 0520 16:28 81 99 0520 16:27 77 135/61 05/20 16:23 87 99 05//20 16:18 89 99 05//20 16:13 83 99 05/20 16:12 80 142/70 0520 16:08 96 H 99 0520 16:03 61 97 05//20 15:58 70 97 05//20 15:57 65 107/54 05/27/20 15:53 67 98 05//20 15:48 65 98 05//20 15:43 62 99 05/20 15:42 67 113/57 05/27/20 15:38 94 H 99 03/16/20 15:33 75 98 05 15:28 71 98 05 15:27 84 113/56 03/16/20 15:23 85 98 05 15:18 82 99 03/16/20 15:13 69 99 05 15:12 81 126/62 05 15:08 96 H 99 03/16/20 15:03 90 99 03/16/20 14:58 99 H 99 03/16/20 14:57 100 H 139/73 03/16/20 14:53 77 97 03/16/20 14:48 78 97 03/16/20 14:43 80 98 03/16/20 14:42 88 140/67 03/16/20 14:38 84 99 03/16/20 14:33 89 99 03/16/20 14:28 95 H 98 03/16/20 14:27 92 H 108/53 03/16/20 14:23 69 97 03/16/20 14:18 75 97 03/16/20 14:13 68 97 03/16/20 14:12 72 105/53 05 14:08 86 98 03/16/20 14:03 79 97 03/16/20 13:58 84 98 03/16/20 13:57 81 113/54 03/16/20 13:53 74 98 03/16/20 13:48 87 98 03/16/20 13:43 90 98 03/16/20 13:42 85 111/56 03/16/20 13:38 82 99 03/16/20 13:33 84 99 03/16/20 13:28 86 99 03/16/20 13:27 103 H 132/74 05 13:23 86 99 03/16/20 13:18 85 98 03/16/20 13:13 88 99 05 13:12 88 135/69 05 13:08 108 H 99 03/16/20 13:03 91 H 98 03/16/20 12:58 90 99 05 12:57 86 142/72 05 12:53 94 H 99 03/16/20 12:48 96 H 98 03/16/20 12:43 85 99 05/27/20 12:42 93 H 137/71 05 12:38 109 H 99 03/16/20 12:33 90 99 05 12:28 93 H 98 03/16/20 12:27 92 H 152/79 03/16/20 12:23 89 99 05 12:18 94 H 99 03/16/20 12:13 96 H 100 03/16/20 12:12 97 H 168/86 03/16/20 12:08 94 H 100 03/16/20 12:03 98 H 100 03/16/20 11:58 93 H 100 03/16/20 11:57 98 H 139/62 03/16/20 11:53 118 H 100 03/16/20 11:48 102 H 99 03/16/20 11:43 86 99 03/16/20 11:42 89 148/69 03/16/20 11:38 93 H 99 03/16/20 11:33 86 100 03/16/20 11:28 90 99 03/16/20 11:27 86 128/60 03/16/20 11:23 91 H 98 03/16/20 11:18 98 H 100 03/16/20 11:13 96 H 98 03/16/20 11:12 88 130/61 03/16/20 11:08 92 H 98 03/16/20 11:03 106 H 99 03/16/20 10:58 108 H 98 03/16/20 10:57 102 H 115/56 05 10:53 91 H 98 03/16/20 10:48 96 H 98 03/16/20 10:43 90 98 05 10:42 94 H 112/57 05 10:38 95 H 97 05 10:33 89 97 05 10:28 94 H 98 03/16/20 10:27 96 H 110/56 05 10:23 89 97 05 10:18 94 H 99 03/16/20 10:13 108 H 99 05 10:12 91 H 119/58 05 10:08 92 H 97 05 10:03 93 H 98 03/16/20 09:58 90 98 05 09:57 94 H 112/56 0520 09:53 90 99 0520 09:48 89 99 0520 09:43 88 99 05 09:42 92 H 122/58 0520 09:38 90 99 05 09:33 91 H 100 05 09:28 116 H 98 05 09:27 100 H 128/66 05 09:23 101 H 99 05 09:18 93 H 99 05 09:13 92 H 98 05 09:12 93 H 126/63 05 09:08 88 99 05 09:03 93 H 98 05 08:58 87 100 05 08:57 88 127/64 05 08:53 96 H 100 05 08:48 92 H 100 05 08:43 97 H 100 05 08:42 94 H 132/69 05 08:38 93 H 99 05 08:33 96 H 100 05 08:28 95 H 99 05 08:27 90 118/56 05 08:23 98 H 99 05 08:18 88 97 05 08:13 83 97 05 08:12 89 125/60 0520 08:08 85 97 05 08:03 96 H 100 05 07:58 90 98 0520 07:57 85 123/59 0520 07:53 90 100 0520 07:48 84 98 05//20 07:44 98.1 F 99 H 16 130/65 05/27/20 07:43 91 H 99 0520 07:42 93 H 130/65 05//20 07:38 80 99 0520 07:33 85 98 0520 07:30 84 131/64 05/27/20 07:28 64 99 0520 07:23 88 99 0520 07:18 94 H 100 05 07:13 100 H 100 05//20 07:08 97 H 100 03/16/20 07:03 89 99 03/16/20 06:58 102 H 99 03/16/20 06:57 90 122/59 Intake and Output 03/16/20 03/16/20 03/17/20 14:59 22:59 06:59 Output Total 5100 1200 Balance -5100 -1200 Output: Urine 5100 1200 Indwelling Catheter 5100 1200 Other: Total, Output Amount 3100 1200 Estimated Blood Loss 200 - Exam Breasts: Present: normal Cardiovascular: Present: Regular rate Lungs: Present: Clear to auscultation Abdomen: Present: normal appearance, soft Uterus: Present: normal, fundal height below umbilicus Extremities: Present: normal Deep Tendon Reflex Grade: Normal +2 Incision: Present: normal, dry, intact - Labs Labs: Abnormal lab results 03/16/20 03/16/20 03/16/20 Range/Units 13:19 13:22 14:41 POC Glucose 196 H 155 H (70-105) Magnesium 3.50 H (1.7-2.3) mg/dL 03/16/20 03/16/20 03/16/20 Range/Units 17:30 19:50 21:19 POC Glucose 113 H 172 H (70-105) Magnesium 4.20 H (1.7-2.3) mg/dL 03/17/20 Range/Units 00:11 POC Glucose (70-105) Magnesium 4.40 H (1.7-2.3) mg/dL
[2020-03-17] MEDS: PRENATAL VIT27-FE FUMARATE-FOLIC ACID VIT TAB PO SCH (15:17)
[2020-03-17] MEDS: DOCUSATE SODIUM 100 MG CAP PO SCH (15:21)
--- NOTE | 2020-03-17 15:42 | Post Anesthesia Evaluation ---
- Post Anesthesia Evaluation Patient Participated: Yes Airway Patent: Yes Stable Respiratory Function: Yes Nausea/Vomiting: No Temp > 96.8F: Yes Pain Manageable: Yes Adequeate Hydration: Yes Anesthesia Complications: No Block Receding Appropriately: Yes
[2020-03-17] MEDS: INSULIN REGULAR, HUMAN 100 UNITS/1 ML SUB-Q SCH (16:30)
--- NOTE | 2020-03-18 00:56 | Event Note ---
Date: 03/18/20 (Metformin started) Dr Ness recommends putting back on Metformin dose she was on prior to
[2020-03-18] MEDS: IBUPROFEN 800 MG TAB PO SCH ×3 (06:12→18:45)
--- NOTE | 2020-03-18 07:31 | Progress Note ---
Assessment and Plan A: 29 y.o. s/p and s/p magnesium infusion d/t pre eclampsia. Also DM with stable glucose readings. States pain not controlled with pain medications. P: Consult with Dr. Olivera to regarding continued pain. Continue with care. Subjective - Subjective Date of service: 03/18/20 (Pt with c/o CHEUNG and abdominal pain) Principal diagnosis: s/p #2, Pre E and DM Patient reports: appetite normal, voiding normally, pain poorly controlled (Pt states pain medication that was given to her is not working for pain), ambulating normally [place]: doing well Objective - Vital Signs Latest vital signs: Vital Signs Temp Pulse Resp BP BP Pulse Ox 03/18/20 05:25 98.3 F 69 20 112/63 96 03/18/20 00:44 98.4 F 79 20 135/65 97 03/17/20 20:00 98.4 F 74 20 109/46 98 03/17/20 17:08 98.4 F 60 18 131/64 98 03/17/20 09:45 98.1 F 78 20 130/70 03/17/20 08:00 80 152/76 03/17/20 07:59 80 100 03/17/20 07:54 82 99 03/17/20 07:49 61 99 03/17/20 07:44 79 99 03/17/20 07:39 79 98 03/17/20 07:34 76 100 03/17/20 07:33 69 138/70 Intake and Output 03/17/20 03/18/20 03/18/20 22:59 06:59 14:59 Intake Total 480 360 Balance 480 360 Intake: Oral 360 Intake, Free Water 480 Other: Total, Intake Amount 360 # Voids Indwelling Catheter 1 2 - Exam Narrative Exam: Pt denies blurred vision, spots before her eyes, and upper abdominal pain. States that she has a CHEUNG and abdominal pain that was not relieved by the medications that were given to her. BP ranges 112-161/50-80. Breasts: Present: deferred Cardiovascular: Present: Regular rate, Normal S1 Lungs: Present: Clear to auscultation Abdomen: Present: normal appearance, soft Vulva: both: normal Uterus: Present: normal, firm Extremities: Present: edema (+1 edema to hands and feet, non pitting) Deep Tendon Reflex Grade: Normal +2 - Labs Labs: Abnormal lab results 03/17/20 Range/Units 16:13 POC Glucose 113 H (70-105)
[2020-03-18] MEDS ORDERED: ACETAMINOPHEN 500 MG TAB PO PRN (07:32)
[2020-03-18] MEDS ORDERED: metFORMIN 500 MG TAB PO SCH (08:00)
[2020-03-18] MEDS: PRENATAL VIT27-FE FUMARATE-FOLIC ACID VIT TAB PO SCH (10:49)
[2020-03-18] MEDS: DOCUSATE SODIUM 100 MG CAP PO SCH (10:49)
--- NOTE | 2020-03-18 18:08 | Event Note ---
Date: 03/18/20 (Pt states feling much better.) Pt states that she is feeling much better and no longer has a CHEUNG. Explained that we would continue monitor her blood pressures for tonight and that we are anticipating discharge home tomorrow. Pt and significant other verbalized understanding.
--- NOTE | 2020-03-18 18:33 | Discharge Summary ---
Providers - Providers Date of Admission: 03/15/20 10:27 Date of discharge: 03/18/20 (Pt has strong desire to go home.) Attending physician: TERESA BARRERA Primary care physician: TERESA BARRERA Hospitalization Reason for admission: rupture of membranes, other (Decreased movement. ) Delivery: Episiotomy: none Laceration: none Other procedures: none complications: none Discharge diagnosis: delivery (@ 36.5 wks) baby: female Pertinent studies: Pt has a very strong desire to go home. States that it is her son's birthday today and would like to go home to be with him. States that she no longer has a CHEUNG and that her pain is well controlled with Extra strength Tylenol and Motrin. Consulted with Dr. Powell and abdulaziz for patient to go home today. Explained to patient that she would be discharged home today. Hospital course: S: Pt doing well and has a very strong desire to go home. Passing flatus, ambulating, and voiding without difficulty. BC: IUD. Denies CHEUNG, blurred vision, spots before eyes, shortness of breath, and upper abdominal pain. O: VSS. BP ranges have been 110's-140's/70-80's with a one outlining blood pressure that was 163/95. This blood pressure was attributed to the patient moving. Fundus firm, minimal bleeding noted. Adequate I&O's. Blood glucose levels have been stable. H/H 10.6/32.4. A: 29 y.o. s/p , with hx of DM, Pre eclampsia s/p mag. Now stable for discharge home. P: Discharge home with instructions. Please schedule a blood pressure check in the office in one week. To schedule a visit at 4 weeks. Condition at discharge: Good Disposition: DC-01 TO HOME OR SELFCARE Plan - Provider Discharge Summary Activity: routine, no sex for 6 weeks, no heavy lifting 4 weeks, no strenuous exercise Diet: routine Instructions: routine Additional instructions: [] Smoking cessation referral if applicable(refer to patient education folder for contact #) [] Refer to [facility] Booklet Call your doctor immediately for: * Fever > 100.5 * Heavy vaginal bleeding ( >1 pad per hour) * Severe persistent headache * Shortness of breath * Reddened, hot, painful area to leg or breast * Drainage or odor from incision. * Keep incision clean and dry at all times and follow doctor's instructions regarding bathing/showering - Follow up plan Follow up: TERESA BARRERA MD [Primary Care Provider] - 7 Days (Congratulations!!! Please schedule a blood pressure check in the office in 1 week. Please schedule a visit in 4 weeks. If you have any questions or concerns, please do not hesitate to call the office. ) Forms: [facility] Discharge Summary
[2020-03-18 20:59] VITALS: BP 145/84
== END 2020-03-18 20:30 | disposition home or self-care (01) | DRG 774 ==
LOC: TRG 10:26 → LD 10:27 → APU 10:27 → LD 10:40 → OB 03-17 09:36
PROVIDERS: ADMIT Obstetrics & Gynecology; ATTEND Obstetrics & Gynecology
PROC: 10E0XZZ Delivery of Products of Conception, External Approach (ICD-10-PCS; principal; 2020-03-16)
PROC: 3E0R3BZ Introduction of Anesthetic Agent into Spinal Canal, Percutaneous Approach (ICD-10-PCS; 2020-03-16)
PROC: 00HU33Z Insertion of Infusion Device into Spinal Canal, Percutaneous Approach (ICD-10-PCS; 2020-03-16)
PROC: 3E033VJ Introduction of Other Hormone into Peripheral Vein, Percutaneous Approach (ICD-10-PCS; 2020-03-16)
PROC: 3E0234Z Introduction of Serum, Toxoid and Vaccine into Muscle, Percutaneous Approach (ICD-10-PCS; 2020-03-17)
DX: O76 Abnormality in fetal heart rate and rhythm complicating labor and delivery (principal); O24.92 Unspecified diabetes mellitus in childbirth; O99.214 Obesity complicating childbirth; O60.14X0 Preterm labor third trimester with preterm delivery third trimester, not applicable or unspecified; E66.9 Obesity, unspecified; O16.4 Unspecified maternal hypertension, complicating childbirth; O14.94 Unspecified pre-eclampsia, complicating childbirth; Z82.49 Family history of ischemic heart disease and other diseases of the circulatory system; Z3A.36 36 weeks gestation of pregnancy; Z37.0 Single live birth; Z83.3 Family history of diabetes mellitus; O36.8130 Decreased fetal movements, third trimester, not applicable or unspecified
CPT/HCPCS: 36415; 82565; 82962; 83615; 83735; 84450; 84460; 84550; 85014; 85018; 85027; 85461; 86592; 86850; 86900; 86901; 88307; G0378; J0290; J1815; J2405; J2590; J2790; J3010; J3475; J3490; J7030; J7120

== ENCOUNTER 2021-03-29 13:47 | Emergency (ER) | payer MEDICAID ==
[2021-03-29 15:03] VITALS: BP 131/74
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
== END 2021-03-29 17:20 | disposition home or self-care (01) ==
LOC: ED 13:47
DX: R07.89 Other chest pain (principal); M25.512 Pain in left shoulder; I10 Essential (primary) hypertension; E11.9 Type 2 diabetes mellitus without complications; Z79.899 Other long term (current) drug therapy; V49.59XA Passenger injured in collision with other motor vehicles in traffic accident, initial encounter; Y93.89 Activity, other specified; Y92.410 Unspecified street and highway as the place of occurrence of the external cause; Y99.8 Other external cause status
CPT/HCPCS: 71046

== ENCOUNTER 2022-03-07 19:05 | Emergency (ER) | payer MEDICAID ==
[2022-03-07 21:35] LABS: Basophils % (Auto) 0.4 % (0.0-1.8); Eosinophils # (Auto) 0.1 K/mm3 (0.0-0.4); Eosinophils % (Auto) 1.3 % (0.0-4.3); Hematocrit 36.1 % (30.3-42.9); Hemoglobin 12.2 gm/dl (10.1-14.3); Lymphocytes # (Auto) 2.5 K/mm3 (1.2-5.4); Lymphocytes % (Auto) 27.5 % (13.4-35.0); Mean Corpuscular HGB Conc 34 % (30-34); Mean Corpuscular Volume 91 fl (79-97); Monocytes # (Auto) 0.7 K/mm3 (0.0-0.8); Monocytes % (Auto) 7.6 % (0.0-7.3); Platelet Count 360 K/mm3 (140-440); Red Blood Count 3.98 M/mm3 (3.65-5.03); Red Cell Distribution Width 13.5 % (13.2-15.2)
[2022-03-07 21:50] LABS: Alanine Aminotransferase 7 units/L (7-56); Albumin 3.6 g/dL (3.9-5); Blood Urea Nitrogen 8 mg/dL (7-17); Calcium 9.2 mg/dL (8.4-10.2); Hemolysis Index 0
[2022-03-07 21:58] LABS: BUN/Creatinine Ratio 20
[2022-03-07 22:23] LABS: Bacteria,Urine 2+ /HPF (Negative); Bilirubin,Urine NEG (Negative); Blood,Urine NEG (Negative); Color,Urine Yellow (Yellow); Protein,Urine <15 mg/dL mg/dL (Negative); Urobilinogen,Urine < 2.0 mg/dL (<2.0)
--- NOTE | 2022-03-08 06:21 | Ultrasound Report ---
US OB >= 14 weeks Fetus, US OB transvaginal INDICATION / CLINICAL INFORMATION: 18 weeks and vaginal bleeding. Clinical Gestational Age (GA) in weeks, days: 18 weeks 1 day TECHNIQUE: Transabdominal and Transvaginal. COMPARISON: None available. FINDINGS: NUMBER: Single PRESENTATION: cephalic PLACENTA: Posterior and free of the os. MATERNAL ADNEXA: No significant abnormality. AMNIOTIC FLUID VOLUME: Subjectively normal MEASUREMENTS: - Biparietal Diameter = 3.9 cm = 18 weeks - Head Circumference = 15.3 cm = 18 weeks 2 days - Abdominal Circumference = 12.5 cm = 18 weeks 1 day - Femur Length = 2.3 cm = 18 weeks 5 days - Estimated Weight (in grams, if calculated): 200 - Heart Rate (beats per minute): 155 ADDITIONAL FINDINGS: Limited images of the cervix were performed. The cervix is closed and measures 5 .1 cm. AVERAGE ULTRASOUND AGE (AUA) in weeks, days = 17 weeks 6 days IMPRESSION: 1. Single intrauterine with AUA of 17 weeks 6 days. 2. No significant sonographic abnormality. 3. Cervix is closed and measures 5.1 cm Signer Name: Shaw Mike MD Signed: 03/08/2022 6:16 AM Workstation Name: [id number]
--- NOTE | 2022-03-08 08:12 | Emergency Department Report ---
ED General Adult HPI - General Chief complaint: Abdominal Pain Stated complaint: STOMACH PAIN 18 WEEKS Time Seen by Provider: 03/08/22 05:18 Source: patient Mode of arrival: Ambulatory Limitations: No Limitations - History of Present Illness Initial comments: 31-year-old female reports being 18 weeks and having cramping around her abdominal region of unknown etiology. She reports no hematuria, no dysuria, no fever, chills, sweats. No chest pain no palpitations, no nausea, no vomiting, no vaginal discharge no vaginal bleeding. Stable follow-up with her TAKE UP OPERATOR tomorrow but the cramping started today so she went to check out the baby to make sure things okay. -: Gradual Radiation: non-radiation Quality: aching, dull Consistency: constant Improves with: none Worsens with: none Associated Symptoms: denies: confusion, cough, loss of appetite, malaise, s hortness of breath, syncope - Related Data Previous Rx's Medication Instructions Recorded Last Taken Type Acetaminophen [Acetaminophen TAB] 500 mg PO Q8HR PRN #12 tablet 08/17/19 Unknown Rx Amoxicillin [Amoxicillin TAB] 875 mg PO BID 10 Days #20 tablet 08/17/19 Unknown Rx Loratadine (Nf) [Claritin] 10 mg PO QDAY 7 Days #7 tablet 08/17/19 Unknown Rx Naproxen 500 mg PO Q12H PRN #30 tablet 05/02/20 Unknown Rx Naproxen [EC-Naprosyn] 500 mg PO BID PRN #14 tablet.dr 03/29/21 Unknown Rx methOCARBAMOL [Robaxin TAB] 500 mg PO BID PRN #14 tab 03/29/21 Unknown Rx Allergies Allergy/AdvReac Type Severity Reaction Status Date / Time No Known Allergies Allergy Verified 03/07/22 20:43 ED Review of Systems ROS: Stated complaint: STOMACH PAIN 18 WEEKS Other details as noted in HPI Comment: All other systems reviewed and negative ED Past Medical Hx - Past Medical History Previous Medical History?: Yes Hx Hypertension: Yes Hx Diabetes: Yes (TYPE II) Hx Deep Vein Thrombosis: No Hx Renal Disease: No Hx Sickle Cell Disease: No Hx Seizures: No Hx Asthma: No Hx HIV: No - Surgical History Past Surgical History?: No - Social History Smoking Status: Never Smoker Substance Use Type: None - Medications Home Medications: Home Medications Medication Instructions Recorded Confirmed Last Taken Type Acetaminophen [Acetaminophen TAB] 500 mg PO Q8HR PRN #12 tablet 08/17/19 03/15/20 Unknown Rx Amoxicillin [Amoxicillin TAB] 875 mg PO BID 10 Days #20 tablet 08/17/19 03/15/20 Unknown Rx Loratadine (Nf) [Claritin] 10 mg PO QDAY 7 Days #7 tablet 08/17/19 03/15/20 Unknown Rx Naproxen 500 mg PO Q12H PRN #30 tablet 05/02/20 Unknown Rx Naproxen [EC-Naprosyn] 500 mg PO BID PRN #14 tablet. 03/29/21 Unknown Rx methOCARBAMOL [Robaxin TAB] 500 mg PO BID PRN #14 tab 03/29/21 Unknown Rx ED Physical Exam - General Limitations: No Limitations General appearance: alert, in no apparent distress - Head Head exam: Present: atraumatic, normocephalic, normal inspection - Eye Eye exam: Present: normal appearance, PERRL, EOMI Pupils: Present: normal accommodation - ENT ENT exam: Present: normal exam, normal orophraynx, mucous membranes moist, TM's normal bilaterally - Neck Neck exam: Present: normal inspection, full ROM - Respiratory Respiratory exam: Present: normal lung sounds bilaterally. Absent: respiratory distress, wheezes, rales, accessory muscle use, decreased breath sounds - Cardiovascular Cardiovascular Exam: Present: regular rate, normal rhythm. Absent: systolic murmur, diastolic murmur, rubs, gallop - GI/Abdominal GI/Abdominal exam: Present: soft, tenderness, normal bowel sounds. Absent: rebound, rigid, hyperactive bowel sounds, hypoactive bowel sounds, organomegaly, mass, bruit, pulsatile mass - Extremities Exam Extremities exam: Present: normal inspection - Back Exam Back exam: Present: normal inspection - Neurological Exam Neurological exam: Present: alert, oriented X3 - Psychiatric Psychiatric exam: Present: normal affect, normal mood - Skin Skin exam: Present: warm, dry, intact, normal color. Absent: rash ED Course Vital Signs 03/07/22 20:42 Temperature 98.0 F Pulse Rate 80 Respiratory 20 Rate Blood Pressure 117/48 O2 Sat by Pulse 95 Oximetry ED Medical Decision Making - Lab Data Result diagrams: 03/07/22 21:04 03/07/22 21:04 Critical care attestation.: If time is entered above; I have spent that time in minutes in the direct care of this critically ill patient, excluding procedure time. ED Disposition Disposition: HOME / SELF CARE / HOMELESS Condition: Stable Instructions: Round Ligament Pain, Abdominal Pain (ED) Additional Instructions: As we discussed your ultrasound showed your prepregnancy 17 weeks and 6 days heartbeat of 155. Please be sure to follow-up with your TAKE UP OPERATOR. You may take Tylenol as needed for your discomfort be sure to maintain your vitamins. Referrals: PRIMARY CARE, [Referring] - 3-5 Days Forms: Work/School Release Form(ED)
[2022-03-08 08:17] VITALS: BP 122/78
== END 2022-03-08 08:16 | disposition home or self-care (01) ==
LOC: ED 19:05
DX: O26.892 Other specified pregnancy related conditions, second trimester (principal); R10.9 Unspecified abdominal pain; Z3A.18 18 weeks gestation of pregnancy
CPT/HCPCS: 36415; 76805; 76817; 80053; 81001; 84702; 85025; 99284

== ENCOUNTER 2022-06-05 11:34 | Outpatient (CLI) | payer MEDICAID ==
[2022-06-05 13:02] LABS: Bacteria,Urine 2+ /HPF (Negative); Mucus,Urine 2+ /HPF; RBC,Urine < 1.0 /HPF (0.0-6.0)
[2022-06-05 13:06] LABS: Hematocrit 32.5 % (30.3-42.9); Hemoglobin 10.7 gm/dl (10.1-14.3); Mean Corpuscular HGB Conc 33 % (30-34); Mean Corpuscular Volume 83 fl (79-97); Platelet Count 367 K/mm3 (140-440)
[2022-06-05 13:14] LABS: Bilirubin,Urine Negative (Negative); Blood,Urine Negative (Negative); Color,Urine Yellow (Yellow); Protein,Urine <30 mg dL mg/dL (Negative)
[2022-06-05 13:15] LABS: Urobilinogen,Urine < 2.0 mg/dL (<2.0)
[2022-06-05] MEDS ORDERED: TERBUTALINE 1 MG/1 ML INJ SUB-Q SCH (14:00)
[2022-06-05] MEDS ORDERED: LACTATED RINGERS 500 ML IV ONE (14:00)
[2022-06-05 16:02] LABS: Alanine Aminotransferase 8 units/L (7-56); Uric Acid 2.2 mg/dL (3.5-7.6)
[2022-06-05 16:03] VITALS: BP 107/53
[2022-06-06 08:30] LABS: Creatinine,Urine 99.2 mg/dL (0.1-20.0); Protein/Creatinine Ratio,Urine 0.39
== END 2022-06-05 20:02 | disposition home or self-care (01) ==
LOC: TRG 11:34 → APU 11:34 → TRG 20:02
PROVIDERS: ATTEND Student in an Organized Health Care Education/Training Program
DX: O62.9 Abnormality of forces of labor, unspecified (principal); O13.3 Gestational [pregnancy-induced] hypertension without significant proteinuria, third trimester; O99.213 Obesity complicating pregnancy, third trimester; E66.9 Obesity, unspecified; O24.913 Unspecified diabetes mellitus in pregnancy, third trimester; Z79.4 Long term (current) use of insulin; Z3A.34 34 weeks gestation of pregnancy
CPT/HCPCS: 36415; 81001; 82565; 82570; 82962; 83615; 84156; 84450; 84460; 84550; 85027; 96372; J3105

== ENCOUNTER 2022-06-15 12:06 | Outpatient (CLI) | payer MEDICAID ==
[2022-06-15] MEDS ORDERED: LACTATED RINGERS 500 ML IV ONE (13:24)
[2022-06-15 13:37] VITALS: BP 116/59
[2022-06-15 14:05] LABS: Color,Urine Straw (Yellow)
[2022-06-15 14:08] LABS: Bacteria,Urine 4+ /HPF (Negative); Mucus,Urine FEW /HPF
--- NOTE | 2022-06-15 15:26 | XRay Report ---
CHEST 2 VIEWS INDICATION / CLINICAL INFORMATION: pneumonia. COMPARISON: 03/29/2021 FINDINGS: SUPPORT DEVICES: None. HEART / MEDIASTINUM: No significant abnormality. LUNGS / PLEURA: No significant pulmonary or pleural abnormality. No pneumothorax. ADDITIONAL FINDINGS: No significant additional findings. IMPRESSION: 1. No acute findings. Signer Name: Rob Rodriguez Jr, MD Signed: 06/15/2022 3:22 PM Workstation Name: [id number]
--- NOTE | 2022-06-16 09:13 | Electrocardiograph Report ---
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
== END 2022-06-15 15:30 | disposition home or self-care (01) ==
LOC: APU 12:06 → TRG 12:06
PROVIDERS: ATTEND Obstetrics & Gynecology
DX: O26.893 Other specified pregnancy related conditions, third trimester (principal); R06.02 Shortness of breath; R00.2 Palpitations; Z20.822 Contact with and (suspected) exposure to COVID-19; Z3A.32 32 weeks gestation of pregnancy
CPT/HCPCS: 59025; 71046; 81001; 87086; 93005; U0003

== ENCOUNTER 2022-06-22 17:20 | Outpatient (CLI) | payer MEDICAID ==
[2022-06-22] MEDS ORDERED: LACTATED RINGERS 1,000 ML IV ONE (17:51)
[2022-06-22 19:18] VITALS: BP 112/60
[2022-06-22 19:23] LABS: Color,Urine Yellow (Yellow)
[2022-06-22 19:25] LABS: Bacteria,Urine 1+ /HPF (Negative)
[2022-06-22] MEDS ORDERED: LACTATED RINGERS 1,000 ML ONE (20:58)
[2022-06-22] MEDS ORDERED: ACETAMINOPHEN 325 MG TAB PO ONE (21:12)
--- NOTE | 2022-06-22 21:46 | Event Note ---
Date: 06/22/22 PT STATES SHE FEELS MUCH BETTER WITH TYLENOL AND IVFS. WILL D/C HOME AT THIS TIME. CONTRACTIONS HAVE SPACED WITH FLUIDS AND CL WAS NOTED TO BE >5 ON ULTRASOUND. CAT 1 TRACING AT THIS TIME. RN AWARE OF D/C ORDERS
--- NOTE | 2022-06-26 08:31 | Ultrasound Report ---
ULTRASOUND OBSTETRIC LIMITED ULTRASOUND BIOPHYSICAL PROFILE INDICATION / CLINICAL INFORMATION: decreased movement. Ctx's. - Clinical Gestational Age (GA) in weeks, days: 33, 2 TECHNIQUE: Transabdominal. COMPARISON: None available. FINDINGS: BREATHING MOVEMENT = 2 GROSS BODY MOVEMENT = 2 TONE = 2 QUALITATIVE AMNIOTIC FLUID VOLUME = 2 TOTAL BIOPHYSICAL SCORE = 8/8 HEART RATE (beats per minute): 170 AMNIOTIC FLUID INDEX (cm) = 14.1 cm (normal = 7-24 cm) PRESENTATION: Cephalic. ADDITIONAL FINDINGS: Cervical length is 5.1 cm. IMPRESSION: 1. Biophysical Score = 8/8 Signer Name: Evon Rose MD Signed: 06/22/2022 7:28 PM Workstation Name: [id number]
== END 2022-06-22 22:15 | disposition home or self-care (01) ==
LOC: TRG 17:20 → APU 17:22 → TRG 22:15
PROVIDERS: ATTEND Obstetrics & Gynecology
DX: O62.9 Abnormality of forces of labor, unspecified (principal); O36.8130 Decreased fetal movements, third trimester, not applicable or unspecified; O16.3 Unspecified maternal hypertension, third trimester; O99.213 Obesity complicating pregnancy, third trimester; E66.9 Obesity, unspecified; O24.913 Unspecified diabetes mellitus in pregnancy, third trimester; Z3A.33 33 weeks gestation of pregnancy
CPT/HCPCS: 59025; 76815; 76819; 81001; 87086; 96360; J7120

== ENCOUNTER 2022-07-01 15:37 | Outpatient (CLI) | payer MEDICAID ==
[2022-07-01] MEDS ORDERED: TERBUTALINE 1 MG/1 ML INJ SUB-Q ONE ×2 (16:44→18:45)
[2022-07-01] MEDS ORDERED: LACTATED RINGERS 1,000 ML IV ONE (16:45)
[2022-07-01 17:33] LABS: Bacteria,Urine 1+ /HPF (Negative)
[2022-07-01 17:37] LABS: Creatinine,Urine 86.4 mg/dL (0.1-20.0); Protein/Creatinine Ratio,Urine 0.19
[2022-07-01 17:40] LABS: Color,Urine Yellow (Yellow)
[2022-07-01 18:08] LABS: Alanine Aminotransferase 9 units/L (7-56)
[2022-07-01] MEDS ORDERED: ACETAMINOPHEN 500 MG TAB PO ONE (18:09)
[2022-07-01 18:27] LABS: Uric Acid 2.5 mg/dL (3.5-7.6)
[2022-07-01] MEDS ORDERED: LACTATED RINGERS 1000 ML IV SOLN IV SCH (19:00)
[2022-07-01 20:00] VITALS: BP 117/58
== END 2022-07-01 20:20 | disposition home or self-care (01) ==
LOC: TRG 15:37 → APU 15:38 → TRG 20:20
PROVIDERS: ATTEND Obstetrics & Gynecology
DX: O62.9 Abnormality of forces of labor, unspecified (principal); O26.893 Other specified pregnancy related conditions, third trimester; R51.9 Headache, unspecified; Z3A.34 34 weeks gestation of pregnancy
CPT/HCPCS: 36415; 59025; 81001; 82565; 82570; 82962; 83615; 84112; 84156; 84450; 84460; 84550; 96360; 96361; 96372; J3105; J7120

== ENCOUNTER 2022-07-08 07:32 | Outpatient (CLI) | payer MEDICAID ==
--- NOTE | 2022-07-08 08:42 | Event Note ---
Date: 07/08/22 IUP@35 weeks Complains of UC's Now worse since last week when she was evaluated here Cervix unchanged. FHT's cat UC none VSS BP's nml PO hydration, rechk ~1hour allow home if no cervical change
[2022-07-08] MEDS ORDERED: LACTATED RINGERS 1,000 ML IV ONE (10:00)
[2022-07-08 10:40] VITALS: BP 134/81
== END 2022-07-08 10:46 | disposition home or self-care (01) ==
LOC: TRG 07:32 → APU 07:34 → TRG 10:46
PROVIDERS: ATTEND Obstetrics & Gynecology
DX: O62.9 Abnormality of forces of labor, unspecified (principal); O16.3 Unspecified maternal hypertension, third trimester; O24.913 Unspecified diabetes mellitus in pregnancy, third trimester; O99.213 Obesity complicating pregnancy, third trimester; E66.9 Obesity, unspecified; Z3A.35 35 weeks gestation of pregnancy
CPT/HCPCS: 96360; J7120

== ENCOUNTER 2022-07-11 11:43 | Outpatient (CLI) | payer MEDICAID ==
--- NOTE | 2022-07-11 13:30 | Ultrasound Report ---
ULTRASOUND BIOPHYSICAL PROFILE ULTRASOUND OB LIMITED INDICATION: [facility]; BPP CURRY TECHNIQUE: Transabdominal ultrasound imaging. COMPARISON: None FINDINGS: breathing movement = 2 Gross body movement = 2 tone = 2 Qualitative amniotic fluid volume = 2 Total biophysical score = 8/8 Amniotic fluid index is 10.0 cm. Presentation is cephalic. heart rate is 135 beats per minute. IMPRESSION: biophysical profile equals 8/8. Signer Name: Rob Rodriguez Jr, MD Signed: 07/11/2022 1:26 PM Workstation Name: [id number]
[2022-07-11 13:43] VITALS: BP 115/56
[2022-07-11] MEDS ORDERED: LACTATED RINGERS 500 ML IV ONE (15:00)
== END 2022-07-11 14:08 | disposition home or self-care (01) ==
LOC: TRG 11:43 → APU 11:56 → TRG 14:08
PROVIDERS: ATTEND Obstetrics & Gynecology
DX: O36.8130 Decreased fetal movements, third trimester, not applicable or unspecified (principal); Z3A.36 36 weeks gestation of pregnancy
CPT/HCPCS: 59025; 76815; 76819; 82962

== ENCOUNTER 2022-07-12 16:29 | Outpatient (CLI) | payer MEDICAID ==
[2022-07-12] MEDS ORDERED: LACTATED RINGERS 1,000 ML IV ONE (17:40)
[2022-07-12 18:35] LABS: Color,Urine Yellow (Yellow)
[2022-07-12 18:36] LABS: Mucus,Urine FEW /HPF
--- NOTE | 2022-07-12 18:52 | Ultrasound Report ---
ULTRASOUND OBSTETRIC LIMITED INDICATION / CLINICAL INFORMATION: leaking fluid. COMPARISON: None available. FINDINGS: AMNIOTIC FLUID INDEX (cm) = 11 PRESENTATION: Cephalic. HEART RATE (beats per minute): 165 ADDITIONAL FINDINGS: None. IMPRESSION: Normal amniotic fluid index of 11 cm. No other significant abnormality. Signer Name: Dougie Garcia MD Signed: 07/12/2022 6:48 PM Workstation Name: [id number]
[2022-07-12 19:46] VITALS: BP 129/79
== END 2022-07-12 20:03 | disposition home or self-care (01) ==
LOC: TRG 16:29 → APU 16:31 → TRG 20:03
PROVIDERS: ATTEND Obstetrics & Gynecology
DX: O42.913 Preterm premature rupture of membranes, unspecified as to length of time between rupture and onset of labor, third trimester (principal); Z3A.36 36 weeks gestation of pregnancy
CPT/HCPCS: 36415; 76815; 81001; 84112

== ENCOUNTER 2022-07-18 08:46 | Inpatient (IN) | payer MEDICAID ==
[2022-07-18] MEDS: LACTATED RINGERS 1,000 ML IV SCH ×2 (10:20→22:02)
[2022-07-18] MEDS ORDERED: METHYLERGONOVINE MALEATE 0.2 MG/ML VIAL IM PRN (10:40)
[2022-07-18] MEDS ORDERED: OXYTOCIN DRIP 30,000 MILLIUNITS/500 ML BAG IV ONE (10:40)
[2022-07-18] MEDS ORDERED: LIDOCAINE (2%) 20 MG/1 ML VIAL 20 ML MDV INFILTRATI NR (10:40)
--- NOTE | 2022-07-18 10:52 | History and Physical Report ---
History of Present Illness Date of examination: 07/18/22 Date of admission: 07/18/2022 Chief complaint: IOL Type II DM, AMA History of present illness: 32 yo 37w 0d presents for scheduled induction for DM2. Accu checks q2h with sliding scale. GBS postive, ampicillin ordered. SVE 0/70/-2, Discussed Plan with pt for pitocin, re-eval in 6 hours. Pt verbalized understanding. Anticipate . EDC Confirmation: 08/08/2022 Past History : 8 Term Births: 5 Premature Births: 2 Living Children: 5 Para: 6 Mult. Births: 0 Prev : 0 Aborta: 1 Elect. Ab: 0 Spont. Ab: 1 Ectopics: 0 # 1 Delivery date: 12/28/2005 Weeks Gestation: 40 labor: no Delivery type: Delivery location: [place] [facility] Sex: Female weight: 6#0oz Name: Ivory # 2 Delivery date: 2006 Weeks Gestation: 7 Delivery type: SAB Delivery location: [place] # 3 Delivery date: 02/28/2011 Weeks Gestation: 20 labor: yes Sex: Male # 4 Delivery date: 08/19/2012 Weeks Gestation: 38 labor: no Delivery type: Anesthesia type: epidural Delivery location: [place] [facility] Sex: Male weight: 7#0oz Name: Nicholas # 5 Delivery date: 01/13/2014 Weeks Gestation: 38 labor: no Delivery type: Anesthesia type: epidural Delivery location: [place] [facility] Sex: Female weight: 7# Name: Inocencia # 6 Delivery date: 03/18/2016 Weeks Gestation: 38 labor: no Delivery type: Anesthesia type: none Delivery location: [place] Sex: Male weight: 8#11 Name: Mati # 7 Delivery date: 03/16/2020 Weeks Gestation: 36+6 Delivery type: Vaginal Anesthesia type: epidural Delivery location: [facility] Sex: female weight: 8.69 Name: Rachel Leblanc Comments: pre-eclampsia/eclampsia, type 2DM Past Medical History: Reviewed and updated today: Diabetes type 2 - managed by [facility] TB (2006) Past Surgical History: Bilateral foot surgery- 5th toe Social History: Single, 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, lives in a trailor without stairs, no etoh, tobacco, drugs, Lives with 5 kids and her brother, has a dog, no cats Risk Factors: Smoked Tobacco Use: Never smoker Smokeless Tobacco Use: Never Passive Smoke Exposure: no HIV High Risk Behavior: no Exercise: no Seatbelt Use: 100 % Past Medical History Social Hx: Single, 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, lives in a trailor without stairs, no etoh, tobacco, drugs, Lives with 5 kids and her brother, has a dog, no cats Infection History HIV Risk Eval: no Genetic History Congenital Heart Defect: Mom: no Dad: no Leana Disease: Mom: no Dad: no Thalassemia Mom: no Dad: no Neural Tube Defect Mom: no Dad: no Down's Syndrome Mom: no Dad: no Keith-Sachs Mom: no Dad: no Sickle Cell Disease/Trait Mom: no Dad: no Hemophilia Mom: no Dad: no Muscular Dystrophy Mom: no Dad: no Cystic Fibrosis Mom: no Dad: no [place] Chorea Mom: no Dad: no Mental Retardation Mom: no Dad: no Fragile X Mom: no Dad: no Other Genetic/Chromosomal Disorder Mom: no Dad: no Child w/other defect Mom: no Dad: no Enviromental Exposures Xray Exposure: no Medication, drug, or alcohol use since LMP: no Chemical/Other Exposure: no Exposure to Cat Liter: no Hx of Parvovirus (Fifth Disease): no Occupational Exposure to Children: none Active Medications (reviewed today): Plus 29 mg iron- 1 mg tablet (pnv,calcium 72-iron,carb-folic) 1 tablet by mouth once a day GLYBURIDE 5MG QD () METFORMIN 500MG BID () Current Allergies: No known allergies Past History - Obstetrical History : 8 Medications and Allergies Allergies Allergy/AdvReac Type Severity Reaction Status Date / Time No Known Allergies Allergy Verified 07/11/22 12:17 Home Medications Medication Instructions Recorded Confirmed Last Taken Type Nitrofurantoin [place]/M-Cryst 100 mg PO Q12HR 7 Days #14 capsule 06/15/22 Unknown Rx [Macrobid CAP] Review of Systems All systems: negative - Vital Signs Vital signs: Vital Signs Pulse Pulse Ox 78 79 L 07/18/22 09:16 07/18/22 09:16 Temp Pulse Resp BP Pulse Ox 98.3 F 71 16 123/68 100 07/18/22 09:26 07/18/22 10:46 07/18/22 09:26 07/18/22 09:38 07/18/22 10:46 - Physical Exam Breasts: Positive: normal Cardiovascular: Regular rate, Normal S1, Normal S2 Lungs: Positive: Clear to auscultation, Normal air movement Abdomen: Positive: normal appearance, soft, normal bowel sounds. Negative: distention, tenderness Genitourinary (Female): Positive: normal external genitalia, normal perenium Vulva: both: normal Vagina: Positive: normal moisture. Negative: discharge Cervix: Negative: lesion, discharge Uterus: Positive: normal size, normal contour Adnexa: both: normal Anus/Rectum: Positive: normal perianal skin, heme negative. Negative: rectal mass, hemorrhoids Extremities: Positive: normal Deep Tendon Reflex Grade: Normal +2 - Obstetrical FHR: category 1 Uterine Contraction Monitor Mode: External Cervical Dilatation: 0 Cervical Effacement Percentage: 70 station: -2 Uterine Contraction Frequency (min): 2-4 Uterine Contraction Duration: 60-100 Uterine Contraction Pattern: Regular Uterine Tone Measurement Phase: Contraction Uterine Contraction Intensity: Moderate Results Result Diagrams: 07/18/22 10:18 All other labs normal. Assessment and Plan - Patient Problems (1) 37 weeks gestation of Current Visit: Yes Status: Acute Plan to address problem: IOL for DM II Induction agent Pitocin Pain management IV or epidural PRN GBS Positive ampicillin Anticipate (2) Diabetes mellitus type 2 in obese Onset Date: ~03/17/20 Current Visit: No Status: Acute Plan to address problem: Accu Checks q2H Sliding scale insulin (3) GBS (group B streptococcus) infection Current Visit: Yes Status: Acute Plan to address problem: Ampicillin per protocol
[2022-07-18] MEDS ORDERED: ACETAMINOPHEN 325 MG TAB PO PRN (11:00)
[2022-07-18] MEDS ORDERED: AMPICILLIN/NS 2 GM/100 ML 2 GM/100 ML BAG IV ONE (11:00)
[2022-07-18] MEDS ORDERED: OXYTOCIN DRIP 30 UNITS/500 ML BAG IV SCH ×2 (11:00)
[2022-07-18 11:26] LABS: Hematocrit 32.1 % (30.3-42.9); Hemoglobin 10.4 gm/dl (10.1-14.3); Mean Corpuscular HGB Conc 32 % (30-34); Mean Corpuscular Volume 78 fl (79-97); Platelet Count 309 K/mm3 (140-440); Red Blood Count 4.12 M/mm3 (3.65-5.03); Red Cell Distribution Width 15.8 % (13.2-15.2)
[2022-07-18] MEDS ORDERED: TERBUTALINE 1 MG/1 ML INJ SUB-Q PRN (11:30)
[2022-07-18] MEDS ORDERED: OXYTOCIN 10 UNIT/1 ML INJ IM PRN (12:00)
[2022-07-18] MEDS ORDERED: LOPERAMIDE 2 MG CAP PO PRN (12:00)
[2022-07-18] MEDS ORDERED: miSOPROStol 200 MCG TAB PR PRN (12:00)
[2022-07-18] MEDS ORDERED: CARBOPROST TROMETHAMINE 250 MCG/1 ML INJ IM PRN (12:00)
[2022-07-18] MEDS: AMPICILLIN/NS 1 GM/50 ML 1 GM/50 ML BAG IV SCH ×2 (14:36→19:53)
[2022-07-18] MEDS: BUTORPHANOL 2 MG/1 ML INJ IV PRN ×2 (14:58→19:51)
[2022-07-18] MEDS ORDERED: DEXTROSE 50% IN WATER (25GM) 50 ML SYRINGE IV PRN (18:55)
[2022-07-18] MEDS: INSULIN REGULAR, HUMAN 100 UNITS/1 ML SUB-Q SCH (21:05)
[2022-07-18] MEDS ORDERED: MINERAL OIL 30 ML ORAL LIQD PO PRN (22:00)
[2022-07-19] MEDS: AMPICILLIN/NS 1 GM/50 ML 1 GM/50 ML BAG IV SCH ×2 (00:11→08:07)
[2022-07-19] MEDS: BUTORPHANOL 2 MG/1 ML INJ IV PRN ×2 (01:37→05:09)
--- NOTE | 2022-07-19 06:35 | Progress Note ---
Assessment and Plan - Patient Problems (1) 37 weeks gestation of Current Visit: Yes Status: Acute Plan to address problem: Induction agent Pitocin Pain management IV or epidural PRN GBS Positive ampicillin Anticipate (2) Diabetes mellitus type 2 in obese Onset Date: ~03/17/20 Current Visit: No Status: Acute Plan to address problem: Accu Checks q2H Sliding scale insulin (3) GBS (group B streptococcus) infection Current Visit: Yes Status: Acute Plan to address problem: Ampicillin per protocol Subjective - Subjective Date of service: 07/19/22 Interval history: pt in bed tearful from ctx pain. Requesting epidural. nurse notified. SVE / 1. Discussed AROM after epidural, pt agrees with plan of care. Anticipate . Patient reports: new complaints (CTX pain, requesting epidural), movement normal, contractions Objective - Vital Signs Vital Signs: Vital Signs - 12hr 07/18/22 07/18/22 07/18/22 18:33 18:38 18:42 Temperature Pulse Rate 85 79 92 H Respiratory Rate Blood Pressure O2 Sat by Pulse 97 100 91 Oximetry O2 Sat by Pulse Oximetry [ Bilateral] 07/18/22 07/18/22 07/18/22 18:43 18:48 18:53 Temperature Pulse Rate 78 65 76 Respiratory Rate Blood Pressure O2 Sat by Pulse 96 99 97 Oximetry O2 Sat by Pulse Oximetry [ Bilateral] 07/18/22 07/18/22 07/18/22 19:05 19:35 19:36 Temperature Pulse Rate 72 91 H Respiratory Rate Blood Pressure 135/64 O2 Sat by Pulse 98 Oximetry O2 Sat by Pulse 100 Oximetry [ Bilateral] 07/18/22 07/18/22 07/18/22 19:41 19:46 19:51 Temperature Pulse Rate 69 72 73 Respiratory Rate Blood Pressure O2 Sat by Pulse 98 97 98 Oximetry O2 Sat by Pulse Oximetry [ Bilateral] 07/18/22 07/18/22 07/18/22 19:56 20:01 20:06 Temperature Pulse Rate 82 85 87 Respiratory Rate Blood Pressure O2 Sat by Pulse 97 97 96 Oximetry O2 Sat by Pulse Oximetry [ Bilateral] 07/18/22 07/18/22 07/18/22 20:11 20:16 20:18 Temperature Pulse Rate 69 67 82 Respiratory Rate Blood Pressure O2 Sat by Pulse 95 95 94 Oximetry O2 Sat by Pulse Oximetry [ Bilateral] 07/18/22 07/18/22 07/18/22 20:21 20:26 20:31 Temperature Pulse Rate 70 76 92 H Respiratory Rate Blood Pressure 112/59 O2 Sat by Pulse 96 97 97 Oximetry O2 Sat by Pulse Oximetry [ Bilateral] 07/18/22 07/18/22 07/18/22 20:36 20:41 20:46 Temperature Pulse Rate 79 72 62 Respiratory Rate Blood Pressure O2 Sat by Pulse 97 97 96 Oximetry O2 Sat by Pulse Oximetry [ Bilateral] 07/18/22 07/18/22 07/18/22 20:51 20:56 21:01 Temperature Pulse Rate 67 73 81 Respiratory Rate Blood Pressure 112/57 O2 Sat by Pulse 96 97 98 Oximetry O2 Sat by Pulse Oximetry [ Bilateral] 07/18/22 07/18/22 07/18/22 21:06 21:11 21:16 Temperature Pulse Rate 67 59 L 64 Respiratory Rate Blood Pressure O2 Sat by Pulse 98 98 98 Oximetry O2 Sat by Pulse Oximetry [ Bilateral] 07/18/22 07/18/22 07/18/22 21:21 21:26 21:31 Temperature Pulse Rate 71 64 77 Respiratory Rate Blood Pressure 126/67 O2 Sat by Pulse 95 97 98 Oximetry O2 Sat by Pulse Oximetry [ Bilateral] 07/18/22 07/18/22 07/18/22 21:36 21:41 21:46 Temperature Pulse Rate 62 59 L 66 Respiratory Rate Blood Pressure O2 Sat by Pulse 98 99 98 Oximetry O2 Sat by Pulse Oximetry [ Bilateral] 07/18/22 07/18/22 07/18/22 21:51 21:56 22:01 Temperature Pulse Rate 85 65 73 Respiratory Rate Blood Pressure 123/63 O2 Sat by Pulse 99 99 99 Oximetry O2 Sat by Pulse Oximetry [ Bilateral] 07/18/22 07/18/22 07/18/22 22:06 22:11 22:16 Temperature Pulse Rate 61 61 62 Respiratory Rate Blood Pressure O2 Sat by Pulse 98 98 99 Oximetry O2 Sat by Pulse Oximetry [ Bilateral] 07/18/22 07/18/22 07/18/22 22:21 22:26 22:31 Temperature Pulse Rate 72 60 60 Respiratory Rate Blood Pressure 144/94 O2 Sat by Pulse 99 98 98 Oximetry O2 Sat by Pulse Oximetry [ Bilateral] 07/18/22 07/18/22 07/18/22 22:44 22:49 22:51 Temperature Pulse Rate 62 61 61 Respiratory Rate Blood Pressure 120/61 O2 Sat by Pulse 99 99 Oximetry O2 Sat by Pulse Oximetry [ Bilateral] 07/18/22 07/18/22 07/18/22 22:54 22:57 22:59 Temperature Pulse Rate 61 87 65 Respiratory Rate Blood Pressure O2 Sat by Pulse 97 94 99 Oximetry O2 Sat by Pulse Oximetry [ Bilateral] 07/18/22 07/18/22 07/18/22 23:04 23:09 23:14 Temperature Pulse Rate 69 63 65 Respiratory Rate Blood Pressure O2 Sat by Pulse 98 97 98 Oximetry O2 Sat by Pulse Oximetry [ Bilateral] 07/18/22 07/18/22 07/18/22 23:19 23:22 23:24 Temperature Pulse Rate 62 54 L 60 Respiratory Rate Blood Pressure 125/60 O2 Sat by Pulse 98 99 Oximetry O2 Sat by Pulse Oximetry [ Bilateral] 07/18/22 07/18/22 07/18/22 23:29 23:34 23:36 Temperature 98 F Pulse Rate 58 L 59 L Respiratory 18 Rate Blood Pressure O2 Sat by Pulse 97 99 99 Oximetry O2 Sat by Pulse Oximetry [ Bilateral] 07/18/22 07/18/22 07/18/22 23:39 23:44 23:49 Temperature Pulse Rate 68 62 60 Respiratory Rate Blood Pressure O2 Sat by Pulse 98 99 99 Oximetry O2 Sat by Pulse Oximetry [ Bilateral] 07/18/22 07/18/22 07/18/22 23:53 23:54 23:59 Temperature Pulse Rate 58 L 78 69 Respiratory Rate Blood Pressure 129/63 O2 Sat by Pulse 97 97 Oximetry O2 Sat by Pulse Oximetry [ Bilateral] 07/19/22 07/19/22 07/19/22 00:04 00:09 00:14 Temperature Pulse Rate 66 57 L 66 Respiratory Rate Blood Pressure O2 Sat by Pulse 98 98 98 Oximetry O2 Sat by Pulse Oximetry [ Bilateral] 07/19/22 07/19/22 07/19/22 00:19 00:21 00:24 Temperature Pulse Rate 58 L 65 56 L Respiratory Rate Blood Pressure 128/72 O2 Sat by Pulse 99 100 Oximetry O2 Sat by Pulse Oximetry [ Bilateral] 07/19/22 07/19/22 07/19/22 00:27 00:29 00:34 Temperature Pulse Rate 61 59 L 73 Respiratory Rate Blood Pressure O2 Sat by Pulse 94 98 98 Oximetry O2 Sat by Pulse Oximetry [ Bilateral] 07/19/22 07/19/22 07/19/22 00:39 00:44 00:49 Temperature Pulse Rate 66 69 61 Respiratory Rate Blood Pressure O2 Sat by Pulse 97 97 98 Oximetry O2 Sat by Pulse Oximetry [ Bilateral] 07/19/22 07/19/22 07/19/22 00:51 00:54 00:59 Temperature Pulse Rate 56 L 64 54 L Respiratory Rate Blood Pressure 129/61 O2 Sat by Pulse 98 98 Oximetry O2 Sat by Pulse Oximetry [ Bilateral] 07/19/22 07/19/22 07/19/22 01:04 01:09 01:14 Temperature Pulse Rate 59 L 57 L 62 Respiratory Rate Blood Pressure O2 Sat by Pulse 99 98 99 Oximetry O2 Sat by Pulse Oximetry [ Bilateral] 07/19/22 07/19/22 07/19/22 01:19 01:23 01:24 Temperature Pulse Rate 59 L 52 L 67 Respiratory Rate Blood Pressure 136/75 O2 Sat by Pulse 98 99 Oximetry O2 Sat by Pulse Oximetry [ Bilateral] 07/19/22 07/19/22 07/19/22 01:29 01:34 01:35 Temperature Pulse Rate 66 63 64 Respiratory Rate Blood Pressure O2 Sat by Pulse 98 98 84 Oximetry O2 Sat by Pulse Oximetry [ Bilateral] 07/19/22 07/19/22 07/19/22 01:39 01:44 01:49 Temperature Pulse Rate 54 L 66 60 Respiratory Rate Blood Pressure O2 Sat by Pulse 99 97 97 Oximetry O2 Sat by Pulse Oximetry [ Bilateral] 07/19/22 07/19/22 07/19/22 01:53 01:54 01:59 Temperature Pulse Rate 60 60 62 Respiratory Rate Blood Pressure 127/61 O2 Sat by Pulse 97 97 Oximetry O2 Sat by Pulse Oximetry [ Bilateral] 07/19/22 07/19/22 07/19/22 02:04 02:09 02:14 Temperature Pulse Rate 68 61 99 H Respiratory Rate Blood Pressure O2 Sat by Pulse 95 97 97 Oximetry O2 Sat by Pulse Oximetry [ Bilateral] 07/19/22 07/19/22 07/19/22 02:19 02:21 02:24 Temperature Pulse Rate 63 57 L 60 Respiratory Rate Blood Pressure 131/64 O2 Sat by Pulse 97 94 Oximetry O2 Sat by Pulse Oximetry [ Bilateral] 07/19/22 07/19/22 07/19/22 02:29 02:34 02:39 Temperature Pulse Rate 65 69 77 Respiratory Rate Blood Pressure O2 Sat by Pulse 96 96 98 Oximetry O2 Sat by Pulse Oximetry [ Bilateral] 07/19/22 07/19/22 07/19/22 02:44 02:49 02:51 Temperature Pulse Rate 63 64 60 Respiratory Rate Blood Pressure 133/67 O2 Sat by Pulse 98 97 Oximetry O2 Sat by Pulse Oximetry [ Bilateral] 07/19/22 07/19/22 07/19/22 02:54 02:59 03:04 Temperature Pulse Rate 66 63 69 Respiratory Rate Blood Pressure O2 Sat by Pulse 96 97 98 Oximetry O2 Sat by Pulse Oximetry [ Bilateral] 07/19/22 07/19/22 07/19/22 03:09 03:11 03:14 Temperature 98.5 F Pulse Rate 94 H 65 Respiratory 18 Rate Blood Pressure O2 Sat by Pulse 98 98 98 Oximetry O2 Sat by Pulse Oximetry [ Bilateral] 07/19/22 07/19/22 07/19/22 03:19 03:22 03:24 Temperature Pulse Rate 59 L 81 69 Respiratory Rate Blood Pressure 136/77 O2 Sat by Pulse 98 96 Oximetry O2 Sat by Pulse Oximetry [ Bilateral] 07/19/22 07/19/22 07/19/22 03:29 03:34 03:39 Temperature Pulse Rate 72 64 60 Respiratory Rate Blood Pressure O2 Sat by Pulse 98 98 97 Oximetry O2 Sat by Pulse Oximetry [ Bilateral] 07/19/22 07/19/22 07/19/22 03:44 03:49 03:51 Temperature Pulse Rate 64 68 77 Respiratory Rate Blood Pressure 141/68 O2 Sat by Pulse 97 97 94 Oximetry O2 Sat by Pulse Oximetry [ Bilateral] 07/19/22 07/19/22 07/19/22 03:54 03:59 04:04 Temperature Pulse Rate 65 57 L 61 Respiratory Rate Blood Pressure O2 Sat by Pulse 96 98 98 Oximetry O2 Sat by Pulse Oximetry [ Bilateral] 07/19/22 07/19/22 07/19/22 04:09 04:14 04:19 Temperature Pulse Rate 59 L 60 67 Respiratory Rate Blood Pressure O2 Sat by Pulse 98 98 98 Oximetry O2 Sat by Pulse Oximetry [ Bilateral] 07/19/22 07/19/22 07/19/22 04:23 04:24 04:39 Temperature Pulse Rate 61 75 71 Respiratory Rate Blood Pressure 120/56 O2 Sat by Pulse 99 99 Oximetry O2 Sat by Pulse Oximetry [ Bilateral] 07/19/22 07/19/22 07/19/22 04:41 04:44 04:49 Temperature Pulse Rate 71 77 70 Respiratory Rate Blood Pressure O2 Sat by Pulse 92 99 99 Oximetry O2 Sat by Pulse Oximetry [ Bilateral] 07/19/22 07/19/22 07/19/22 04:52 04:54 04:59 Temperature Pulse Rate 64 61 74 Respiratory Rate Blood Pressure 128/73 O2 Sat by Pulse 99 99 Oximetry O2 Sat by Pulse Oximetry [ Bilateral] 07/19/22 07/19/22 07/19/22 05:04 05:09 05:12 Temperature Pulse Rate 114 H 80 59 L Respiratory Rate Blood Pressure O2 Sat by Pulse 100 98 82 L Oximetry O2 Sat by Pulse Oximetry [ Bilateral] 07/19/22 07/19/22 07/19/22 05:14 05:17 05:19 Temperature Pulse Rate 72 87 72 Respiratory Rate Blood Pressure O2 Sat by Pulse 97 85 97 Oximetry O2 Sat by Pulse Oximetry [ Bilateral] 07/19/22 07/19/22 07/19/22 05:21 05:24 05:26 Temperature Pulse Rate 60 77 76 Respiratory Rate Blood Pressure 124/59 O2 Sat by Pulse 96 94 Oximetry O2 Sat by Pulse Oximetry [ Bilateral] 07/19/22 07/19/22 07/19/22 05:29 05:34 05:39 Temperature Pulse Rate 73 63 65 Respiratory Rate Blood Pressure O2 Sat by Pulse 97 97 96 Oximetry O2 Sat by Pulse Oximetry [ Bilateral] 07/19/22 07/19/22 07/19/22 05:44 05:49 05:53 Temperature Pulse Rate 76 84 88 Respiratory Rate Blood Pressure 144/75 O2 Sat by Pulse 96 98 Oximetry O2 Sat by Pulse Oximetry [ Bilateral] 07/19/22 07/19/22 07/19/22 05:54 05:59 06:04 Temperature Pulse Rate 81 68 94 H Respiratory Rate Blood Pressure O2 Sat by Pulse 98 97 97 Oximetry O2 Sat by Pulse Oximetry [ Bilateral] 07/19/22 07/19/22 07/19/22 06:07 06:09 06:14 Temperature Pulse Rate 66 82 96 H Respiratory Rate Blood Pressure O2 Sat by Pulse 90 98 100 Oximetry O2 Sat by Pulse Oximetry [ Bilateral] 07/19/22 07/19/22 07/19/22 06:19 06:23 06:24 Temperature Pulse Rate 88 96 H 73 Respiratory Rate Blood Pressure 133/66 O2 Sat by Pulse 97 96 Oximetry O2 Sat by Pulse Oximetry [ Bilateral] - Exam Narrative Exam: pt in bed tearful from ctx pain. Requesting epidural. nurse notified. SVE . Discussed AROM after epidural, pt agrees with plan of care. Anticipate . FHR: category 1 Cervical Dilatation: 5 Cervical Effacement Percentage: 90 station: -1 Uterine Contraction Frequency (min): 2-3 Uterine Contraction Duration: 60-100 Uterine Contraction Pattern: Regular Uterine Tone Measurement Phase: Contraction Uterine Contraction Intensity: Strong/Firm - Labs Labs: Abnormal Labs 07/18/22 07/19/22 10:18 03:09 MCV 78 L MCH 25 L RDW 15.8 H POC Glucose 60 L Laboratory Results - last 24 hr 07/18/22 07/18/22 07/18/22 10:18 10:18 13:33 WBC 8.3 RBC 4.12 Hgb 10.4 Hct 32.1 MCV 78 L MCH 25 L MCHC 32 RDW 15.8 H Plt Count 309 POC Glucose 72 SARS-CoV-2 (PCR) Blood Type A NEGATIVE Antibody Screen Negative 07/18/22 07/19/22 07/19/22 13:50 00:09 03:09 WBC RBC Hgb Hct MCV MCH MCHC RDW Plt Count POC Glucose 74 60 L SARS-CoV-2 (PCR) Negative Blood Type Antibody Screen 07/19/22 04:26 WBC RBC Hgb Hct MCV MCH MCHC RDW Plt Count POC Glucose 88 SARS-CoV-2 (PCR) Blood Type Antibody Screen
[2022-07-19] MEDS ORDERED: NALOXONE 0.4 MG/1 ML INJ IV PRN ×3 (07:18→15:47)
[2022-07-19] MEDS ORDERED: fentaNYL-BUPIV 2 MCG/ML-0.125% 200 MCG/100 ML BAG EPIDURAL SCH ×2 (07:18→15:00)
[2022-07-19] MEDS ORDERED: ePHEDrine SULFATE 50 MG/1 ML INJ IV PRN (07:18)
--- NOTE | 2022-07-19 07:19 | Anesthesia Day of Surgery ---
Anesthesia Day of Surgery - Day of Surgery Patient Examined: Yes Patient H&P Reviewed: Yes Patient is NPO: Yes Beta Blockers: No Cardiac Clearance: No Pulmonary Clearance: No Delonte's Test: N/A
--- NOTE | 2022-07-19 07:19 | Anesthesia Consultation ---
Anesthesia Consult and Med Hx Date of service: 07/19/22 - Airway Anesthetic Teeth Evaluation: Good ROM Head & Neck: Adequate Mental/Hyoid Distance: Adequate Mallampati Class: Class II Intubation Access Assessment: Probably Good - Pulmonary Exam CTA: Yes - Cardiac Exam Cardiac Exam: RRR - Pre-Operative Health Status ASA Pre-Surgery Classification: ASA2 Proposed Anesthetic Plan: Epidural - Pulmonary Hx Smoking: No Hx Asthma: No Hx Respiratory Symptoms: No SOB: No COPD: No Home Oxygen Therapy: No Hx Pneumonia: No Hx Sleep Apnea: No - Cardiovascular System Hx Hypertension: No Hx Coronary Artery Disease: No Hx Heart Attack/AMI: No Hx Angina: No Hx Percutaneous Transluminal Coronary Angioplasty (PTCA): No Hx Cardia Arrhythmia: No Hx Pacemaker: No Hx Internal Defibrillator: No Hx Valvular Heart Disease: No Hx Heart Murmur: No Hx Peripheral Vascular Disease: No - Central Nervous System Hx Neuromuscular Disorder: No Hx Seizures: No CVA: No Hx Back Pain: No Hx Psychiatric Problems: No - Gastrointestinal Hx Ulcer: No Hx Gastroesophageal Reflux Disease: No - Endocrine Hx Renal Disease: No Hx End Stage Renal Disease: No Hx Cirrhosis: No Hx Liver Disease: No Hx Insulin Dependent Diabetes: Yes Hx Non-Insulin Dependent Diabetes: No Hx Thyroid Disease: No Hx Hypothyroidism: No Hx Hyperthyroidism: No - Hematic Hx Anemia: No Hx Sickle Cell Disease: No - Other Systems Hx Alcohol Use: No Hx Substance Use: No Hx Cancer: No Hx Obesity: Yes
--- NOTE | 2022-07-19 07:20 | Progress Note ---
Labor Epidural - Labor Epidural Start Time: 07:00 Stop Time: :07 Performed by:: ERNESTO CHAN Procedure: Epidural Requested for Labor Pain. H&P and PT Chart reviewed and consent obtained. Time out performed and the procedure was explained, all questions answered. Patient was placed in a sitting position with monitors applied. The PTs back was prepped and draped in usual sterile fashion. The Skin was localized with 3 mL of 1% lidocaine at L3-L4. A 17-gauge Touhy epidural needle was advanced to YVON with saline at 7 cm and no blood/CSF was noted via epidural needle. Epidural catheter was advanced to 12 cm. There was negative aspiration for blood and CSF in the catheter and negative response to a test dose of 3 ml 1.5% lidocaine w/ Epi and a sterile dressing was applied Patient tolerated the procedure well and there were no immediate complications noted.
[2022-07-19] MEDS: ePHEDrine SULFATE 50 MG/1 ML INJ IV PRN ×2 (07:26→07:32)
--- NOTE | 2022-07-19 07:52 | Progress Note ---
Assessment and Plan A: 32 y.o. @ 37.1 wks IOL d/t type 2 DM. - Patient Problems (1) 37 weeks gestation of Current Visit: Yes Status: Acute Plan to address problem: Continuous EFM to monitor status. Anticipate . (2) GBS (group B streptococcus) infection Current Visit: Yes Status: Acute Plan to address problem: Ampicillin while in labor. (3) Diabetes mellitus type 2 in obese Onset Date: ~03/17/20 Current Visit: No Status: Acute Plan to address problem: Continue with blood glucose checks q 2 hours. Subjective - Subjective Date of service: 07/19/22 Principal diagnosis: IUP @ 37.1 wks, Type 2 DM, insulin controlled Interval history: Pt states that she is feeling vaginal pressure, but no pain. Patient reports: new complaints (CTX pain, requesting epidural), movement normal, contractions Objective - Vital Signs Vital Signs: Vital Signs - 12hr 07/18/22 07/18/22 07/18/22 19:56 20:01 20:06 Temperature Pulse Rate 82 85 87 Respiratory Rate Blood Pressure O2 Sat by Pulse 97 97 96 Oximetry 07/18/22 07/18/22 07/18/22 20:11 20:16 20:18 Temperature Pulse Rate 69 67 82 Respiratory Rate Blood Pressure O2 Sat by Pulse 95 95 94 Oximetry 07/18/22 07/18/22 07/18/22 20:21 20:26 20:31 Temperature Pulse Rate 70 76 92 H Respiratory Rate Blood Pressure 112/59 O2 Sat by Pulse 96 97 97 Oximetry 07/18/22 07/18/22 07/18/22 20:36 20:41 20:46 Temperature Pulse Rate 79 72 62 Respiratory Rate Blood Pressure O2 Sat by Pulse 97 97 96 Oximetry 07/18/22 07/18/22 07/18/22 20:51 20:56 21:01 Temperature Pulse Rate 67 73 81 Respiratory Rate Blood Pressure 112/57 O2 Sat by Pulse 96 97 98 Oximetry 07/18/22 07/18/22 07/18/22 21:06 21:11 21:16 Temperature Pulse Rate 67 59 L 64 Respiratory Rate Blood Pressure O2 Sat by Pulse 98 98 98 Oximetry 07/18/22 07/18/22 07/18/22 21:21 21:26 21:31 Temperature Pulse Rate 71 64 77 Respiratory Rate Blood Pressure 126/67 O2 Sat by Pulse 95 97 98 Oximetry 07/18/22 07/18/22 07/18/22 21:36 21:41 21:46 Temperature Pulse Rate 62 59 L 66 Respiratory Rate Blood Pressure O2 Sat by Pulse 98 99 98 Oximetry 07/18/22 07/18/22 07/18/22 21:51 21:56 22:01 Temperature Pulse Rate 85 65 73 Respiratory Rate Blood Pressure 123/63 O2 Sat by Pulse 99 99 99 Oximetry 07/18/22 07/18/22 07/18/22 22:06 22:11 22:16 Temperature Pulse Rate 61 61 62 Respiratory Rate Blood Pressure O2 Sat by Pulse 98 98 99 Oximetry 07/18/22 07/18/22 07/18/22 22:21 22:26 22:31 Temperature Pulse Rate 72 60 60 Respiratory Rate Blood Pressure 144/94 O2 Sat by Pulse 99 98 98 Oximetry 07/18/22 07/18/22 07/18/22 22:44 22:49 22:51 Temperature Pulse Rate 62 61 61 Respiratory Rate Blood Pressure 120/61 O2 Sat by Pulse 99 99 Oximetry 07/18/22 07/18/22 07/18/22 22:54 22:57 22:59 Temperature Pulse Rate 61 87 65 Respiratory Rate Blood Pressure O2 Sat by Pulse 97 94 99 Oximetry 07/18/22 07/18/22 07/18/22 23:04 23:09 23:14 Temperature Pulse Rate 69 63 65 Respiratory Rate Blood Pressure O2 Sat by Pulse 98 97 98 Oximetry 07/18/22 07/18/22 07/18/22 23:19 23:22 23:24 Temperature Pulse Rate 62 54 L 60 Respiratory Rate Blood Pressure 125/60 O2 Sat by Pulse 98 99 Oximetry 07/18/22 07/18/22 07/18/22 23:29 23:34 23:36 Temperature 98 F Pulse Rate 58 L 59 L Respiratory 18 Rate Blood Pressure O2 Sat by Pulse 97 99 99 Oximetry 07/18/22 07/18/22 07/18/22 23:39 23:44 23:49 Temperature Pulse Rate 68 62 60 Respiratory Rate Blood Pressure O2 Sat by Pulse 98 99 99 Oximetry 07/18/22 07/18/22 07/18/22 23:53 23:54 23:59 Temperature Pulse Rate 58 L 78 69 Respiratory Rate Blood Pressure 129/63 O2 Sat by Pulse 97 97 Oximetry 07/19/22 07/19/22 07/19/22 00:04 00:09 00:14 Temperature Pulse Rate 66 57 L 66 Respiratory Rate Blood Pressure O2 Sat by Pulse 98 98 98 Oximetry 07/19/22 07/19/22 07/19/22 00:19 00:21 00:24 Temperature Pulse Rate 58 L 65 56 L Respiratory Rate Blood Pressure 128/72 O2 Sat by Pulse 99 100 Oximetry 07/19/22 07/19/22 07/19/22 00:27 00:29 00:34 Temperature Pulse Rate 61 59 L 73 Respiratory Rate Blood Pressure O2 Sat by Pulse 94 98 98 Oximetry 07/19/22 07/19/22 07/19/22 00:39 00:44 00:49 Temperature Pulse Rate 66 69 61 Respiratory Rate Blood Pressure O2 Sat by Pulse 97 97 98 Oximetry 07/19/22 07/19/22 07/19/22 00:51 00:54 00:59 Temperature Pulse Rate 56 L 64 54 L Respiratory Rate Blood Pressure 129/61 O2 Sat by Pulse 98 98 Oximetry 07/19/22 07/19/22 07/19/22 01:04 01:09 01:14 Temperature Pulse Rate 59 L 57 L 62 Respiratory Rate Blood Pressure O2 Sat by Pulse 99 98 99 Oximetry 07/19/22 07/19/22 07/19/22 01:19 01:23 01:24 Temperature Pulse Rate 59 L 52 L 67 Respiratory Rate Blood Pressure 136/75 O2 Sat by Pulse 98 99 Oximetry 07/19/22 07/19/22 07/19/22 01:29 01:34 01:35 Temperature Pulse Rate 66 63 64 Respiratory Rate Blood Pressure O2 Sat by Pulse 98 98 84 Oximetry 07/19/22 07/19/22 07/19/22 01:39 01:44 01:49 Temperature Pulse Rate 54 L 66 60 Respiratory Rate Blood Pressure O2 Sat by Pulse 99 97 97 Oximetry 07/19/22 07/19/22 07/19/22 01:53 01:54 01:59 Temperature Pulse Rate 60 60 62 Respiratory Rate Blood Pressure 127/61 O2 Sat by Pulse 97 97 Oximetry 07/19/22 07/19/22 07/19/22 02:04 02:09 02:14 Temperature Pulse Rate 68 61 99 H Respiratory Rate Blood Pressure O2 Sat by Pulse 95 97 97 Oximetry 0907/19/22 07/19/22 02:19 02:21 02:24 Temperature Pulse Rate 63 57 L 60 Respiratory Rate Blood Pressure 131/64 O2 Sat by Pulse 97 94 Oximetry 07/19/22 07/19/22 07/19/22 02:29 02:34 02:39 Temperature Pulse Rate 65 69 77 Respiratory Rate Blood Pressure O2 Sat by Pulse 96 96 98 Oximetry 07/19/22 07/19/22 07/19/22 02:44 02:49 02:51 Temperature Pulse Rate 63 64 60 Respiratory Rate Blood Pressure 133/67 O2 Sat by Pulse 98 97 Oximetry 07/19/22 07/19/22 07/19/22 02:54 02:59 03:04 Temperature Pulse Rate 66 63 69 Respiratory Rate Blood Pressure O2 Sat by Pulse 96 97 98 Oximetry 07/19/22 07/19/22 07/19/22 03:09 03:11 03:14 Temperature 98.5 F Pulse Rate 94 H 65 Respiratory 18 Rate Blood Pressure O2 Sat by Pulse 98 98 98 Oximetry 07/19/22 07/19/22 07/19/22 03:19 03:22 03:24 Temperature Pulse Rate 59 L 81 69 Respiratory Rate Blood Pressure 136/77 O2 Sat by Pulse 98 96 Oximetry 07/19/22 07/19/22 07/19/22 03:29 03:34 03:39 Temperature Pulse Rate 72 64 60 Respiratory Rate Blood Pressure O2 Sat by Pulse 98 98 97 Oximetry 07/19/22 07/19/22 07/19/22 03:44 03:49 03:51 Temperature Pulse Rate 64 68 77 Respiratory Rate Blood Pressure 141/68 O2 Sat by Pulse 97 97 94 Oximetry 07/19/22 07/19/22 07/19/22 03:54 03:59 04:04 Temperature Pulse Rate 65 57 L 61 Respiratory Rate Blood Pressure O2 Sat by Pulse 96 98 98 Oximetry 07/19/22 07/19/22 07/19/22 04:09 04:14 04:19 Temperature Pulse Rate 59 L 60 67 Respiratory Rate Blood Pressure O2 Sat by Pulse 98 98 98 Oximetry 07/19/22 07/19/22 07/19/22 04:23 04:24 04:39 Temperature Pulse Rate 61 75 71 Respiratory Rate Blood Pressure 120/56 O2 Sat by Pulse 99 99 Oximetry 07/19/22 07/19/22 07/19/22 04:41 04:44 04:49 Temperature Pulse Rate 71 77 70 Respiratory Rate Blood Pressure O2 Sat by Pulse 92 99 99 Oximetry 07/19/22 07/19/22 07/19/22 04:52 04:54 04:59 Temperature Pulse Rate 64 61 74 Respiratory Rate Blood Pressure 128/73 O2 Sat by Pulse 99 99 Oximetry 07/19/22 07/19/22 07/19/22 05:04 05:09 05:12 Temperature Pulse Rate 114 H 80 59 L Respiratory Rate Blood Pressure O2 Sat by Pulse 100 98 82 L Oximetry 07/19/22 07/19/22 07/19/22 05:14 05:17 05:19 Temperature Pulse Rate 72 87 72 Respiratory Rate Blood Pressure O2 Sat by Pulse 97 85 97 Oximetry 07/19/22 07/19/22 07/19/22 05:21 05:24 05:26 Temperature Pulse Rate 60 77 76 Respiratory Rate Blood Pressure 124/59 O2 Sat by Pulse 96 94 Oximetry 07/19/22 07/19/22 07/19/22 05:29 05:34 05:39 Temperature Pulse Rate 73 63 65 Respiratory Rate Blood Pressure O2 Sat by Pulse 97 97 96 Oximetry 07/19/22 07/19/22 07/19/22 05:44 05:49 05:53 Temperature Pulse Rate 76 84 88 Respiratory Rate Blood Pressure 144/75 O2 Sat by Pulse 96 98 Oximetry 07/19/22 07/19/22 07/19/22 05:54 05:59 06:04 Temperature Pulse Rate 81 68 94 H Respiratory Rate Blood Pressure O2 Sat by Pulse 98 97 97 Oximetry 07/19/22 07/19/22 07/19/22 06:07 06:09 06:14 Temperature Pulse Rate 66 82 96 H Respiratory Rate Blood Pressure O2 Sat by Pulse 90 98 100 Oximetry 07/19/22 07/19/22 07/19/22 06:19 06:23 06:24 Temperature Pulse Rate 88 96 H 73 Respiratory Rate Blood Pressure 133/66 O2 Sat by Pulse 97 96 Oximetry 07/19/22 07/19/22 07/19/22 06:29 06:34 06:39 Temperature Pulse Rate 95 H 91 H 98 H Respiratory Rate Blood Pressure O2 Sat by Pulse 97 97 98 Oximetry 07/19/22 07/19/22 07/19/22 06:44 06:49 06:54 Temperature Pulse Rate 93 H 78 99 H Respiratory Rate Blood Pressure O2 Sat by Pulse 97 97 98 Oximetry 07/19/22 07/19/22 07/19/22 06:59 07:04 07:06 Temperature Pulse Rate 70 88 63 Respiratory Rate Blood Pressure O2 Sat by Pulse 97 98 86 Oximetry 07/19/22 07/19/22 07/19/22 07:09 07:14 07:15 Temperature Pulse Rate 102 H 75 88 Respiratory Rate Blood Pressure 131/64 127/58 O2 Sat by Pulse 98 97 93 Oximetry 07/19/22 07/19/22 07/19/22 07:18 07:19 07:21 Temperature Pulse Rate 85 83 76 Respiratory Rate Blood Pressure 128/57 95/50 O2 Sat by Pulse 96 Oximetry 07/19/22 07/19/22 07/19/22 07:24 07:29 07:30 Temperature Pulse Rate 77 90 80 Respiratory Rate Blood Pressure 102/50 97/47 O2 Sat by Pulse 98 100 Oximetry 07/19/22 07/19/22 07/19/22 07:33 07:34 07:35 Temperature Pulse Rate 72 89 75 Respiratory Rate Blood Pressure 110/51 115/56 O2 Sat by Pulse 99 Oximetry 07/19/22 07/19/22 07/19/22 07:36 07:38 07:39 Temperature 98.8 F Pulse Rate 69 68 Respiratory 18 Rate Blood Pressure 107/53 O2 Sat by Pulse 98 99 Oximetry 07/19/22 07/19/22 07/19/22 07:41 07:44 07:47 Temperature Pulse Rate 75 74 77 Respiratory Rate Blood Pressure 105/51 106/53 110/54 O2 Sat by Pulse 100 Oximetry 07/19/22 07:49 Temperature Pulse Rate 79 Respiratory Rate Blood Pressure O2 Sat by Pulse 98 Oximetry - Exam Narrative Exam: Blood glucose levels have been 70-80's. Cardiovascular: Regular rate Lungs: Normal air movement Abdomen: Present: normal appearance, soft Vulva: both: normal Uterus: Present: normal FHR: category 2 (Some variable decels noted.) Uterine Contraction Monitor Mode: External Cervical Dilatation: 6 Cervical Effacement Percentage: 80 station: -3 Uterine Contraction Pattern: Regular Uterine Tone Measurement Phase: Resting Uterine Contraction Intensity: Moderate - Labs Labs: Abnormal Labs 07/18/22 07/19/22 10:18 03:09 MCV 78 L MCH 25 L RDW 15.8 H POC Glucose 60 L Laboratory Results - last 24 hr 07/18/22 07/18/22 07/18/22 10:18 10:18 13:33 WBC 8.3 RBC 4.12 Hgb 10.4 Hct 32.1 MCV 78 L MCH 25 L MCHC 32 RDW 15.8 H Plt Count 309 POC Glucose 72 SARS-CoV-2 (PCR) Blood Type A NEGATIVE Antibody Screen Negative 07/18/22 07/19/22 07/19/22 13:50 00:09 03:09 WBC RBC Hgb Hct MCV MCH MCHC RDW Plt Count POC Glucose 74 60 L SARS-CoV-2 (PCR) Negative Blood Type Antibody Screen 07/19/22 04:26 WBC RBC Hgb Hct MCV MCH MCHC RDW Plt Count POC Glucose 88 SARS-CoV-2 (PCR) Blood Type Antibody Screen
[2022-07-19] MEDS: LACTATED RINGERS 1,000 ML IV SCH (08:17)
--- NOTE | 2022-07-19 10:10 | Progress Note ---
Assessment and Plan - Patient Problems (1) 37 weeks gestation of Current Visit: Yes Status: Acute Plan to address problem: Amnio infusion and observe closely (2) GBS (group B streptococcus) infection Current Visit: Yes Status: Acute Plan to address problem: Continue ampicillin (3) Diabetes mellitus type 2 in obese Onset Date: ~03/17/20 Current Visit: No Status: Acute Plan to address problem: Continue q2h accu check Subjective - Subjective Date of service: 07/19/22 Principal diagnosis: IUP @ 37.1 wks, Type 2 DM, insulin controlled Patient reports: new complaints (CTX pain, requesting epidural), movement normal, contractions Objective - Vital Signs Vital Signs: Vital Signs - 12hr 07/18/22 07/18/22 07/18/22 22:11 22:16 22:21 Temperature Pulse Rate 61 62 72 Respiratory Rate Blood Pressure 144/94 O2 Sat by Pulse 98 99 99 Oximetry O2 Sat by Pulse Oximetry [ Bilateral] 07/18/22 07/18/22 07/18/22 22:26 22:31 22:44 Temperature Pulse Rate 60 60 62 Respiratory Rate Blood Pressure O2 Sat by Pulse 98 98 99 Oximetry O2 Sat by Pulse Oximetry [ Bilateral] 07/18/22 07/18/22 07/18/22 22:49 22:51 22:54 Temperature Pulse Rate 61 61 61 Respiratory Rate Blood Pressure 120/61 O2 Sat by Pulse 99 97 Oximetry O2 Sat by Pulse Oximetry [ Bilateral] 07/18/22 07/18/22 07/18/22 22:57 22:59 23:04 Temperature Pulse Rate 87 65 69 Respiratory Rate Blood Pressure O2 Sat by Pulse 94 99 98 Oximetry O2 Sat by Pulse Oximetry [ Bilateral] 07/18/22 07/18/22 07/18/22 23:09 23:14 23:19 Temperature Pulse Rate 63 65 62 Respiratory Rate Blood Pressure O2 Sat by Pulse 97 98 98 Oximetry O2 Sat by Pulse Oximetry [ Bilateral] 07/18/22 07/18/22 07/18/22 23:22 23:24 23:29 Temperature Pulse Rate 54 L 60 58 L Respiratory Rate Blood Pressure 125/60 O2 Sat by Pulse 99 97 Oximetry O2 Sat by Pulse Oximetry [ Bilateral] 07/18/22 07/18/22 07/18/22 23:34 23:36 23:39 Temperature 98 F Pulse Rate 59 L 68 Respiratory 18 Rate Blood Pressure O2 Sat by Pulse 99 99 98 Oximetry O2 Sat by Pulse Oximetry [ Bilateral] 07/18/22 07/18/22 07/18/22 23:44 23:49 23:53 Temperature Pulse Rate 62 60 58 L Respiratory Rate Blood Pressure 129/63 O2 Sat by Pulse 99 99 Oximetry O2 Sat by Pulse Oximetry [ Bilateral] 07/18/22 07/18/22 07/19/22 23:54 23:59 00:04 Temperature Pulse Rate 78 69 66 Respiratory Rate Blood Pressure O2 Sat by Pulse 97 97 98 Oximetry O2 Sat by Pulse Oximetry [ Bilateral] 07/19/22 07/19/22 07/19/22 00:09 00:14 00:19 Temperature Pulse Rate 57 L 66 58 L Respiratory Rate Blood Pressure O2 Sat by Pulse 98 98 99 Oximetry O2 Sat by Pulse Oximetry [ Bilateral] 07/19/22 07/19/22 07/19/22 00:21 00:24 00:27 Temperature Pulse Rate 65 56 L 61 Respiratory Rate Blood Pressure 128/72 O2 Sat by Pulse 100 94 Oximetry O2 Sat by Pulse Oximetry [ Bilateral] 07/19/22 07/19/22 07/19/22 00:29 00:34 00:39 Temperature Pulse Rate 59 L 73 66 Respiratory Rate Blood Pressure O2 Sat by Pulse 98 98 97 Oximetry O2 Sat by Pulse Oximetry [ Bilateral] 07/19/22 07/19/22 07/19/22 00:44 00:49 00:51 Temperature Pulse Rate 69 61 56 L Respiratory Rate Blood Pressure 129/61 O2 Sat by Pulse 97 98 Oximetry O2 Sat by Pulse Oximetry [ Bilateral] 07/19/22 07/19/22 07/19/22 00:54 00:59 01:04 Temperature Pulse Rate 64 54 L 59 L Respiratory Rate Blood Pressure O2 Sat by Pulse 98 98 99 Oximetry O2 Sat by Pulse Oximetry [ Bilateral] 07/19/22 07/19/22 07/19/22 01:09 01:14 01:19 Temperature Pulse Rate 57 L 62 59 L Respiratory Rate Blood Pressure O2 Sat by Pulse 98 99 98 Oximetry O2 Sat by Pulse Oximetry [ Bilateral] 07/19/22 07/19/22 07/19/22 01:23 01:24 01:29 Temperature Pulse Rate 52 L 67 66 Respiratory Rate Blood Pressure 136/75 O2 Sat by Pulse 99 98 Oximetry O2 Sat by Pulse Oximetry [ Bilateral] 07/19/22 07/19/22 07/19/22 01:34 01:35 01:39 Temperature Pulse Rate 63 64 54 L Respiratory Rate Blood Pressure O2 Sat by Pulse 98 84 99 Oximetry O2 Sat by Pulse Oximetry [ Bilateral] 07/19/22 07/19/22 07/19/22 01:44 01:49 01:53 Temperature Pulse Rate 66 60 60 Respiratory Rate Blood Pressure 127/61 O2 Sat by Pulse 97 97 Oximetry O2 Sat by Pulse Oximetry [ Bilateral] 07/19/22 07/19/22 07/19/22 01:54 01:59 02:04 Temperature Pulse Rate 60 62 68 Respiratory Rate Blood Pressure O2 Sat by Pulse 97 97 95 Oximetry O2 Sat by Pulse Oximetry [ Bilateral] 07/19/22 07/19/22 07/19/22 02:09 02:14 02:19 Temperature Pulse Rate 61 99 H 63 Respiratory Rate Blood Pressure O2 Sat by Pulse 97 97 97 Oximetry O2 Sat by Pulse Oximetry [ Bilateral] 07/19/22 07/19/22 07/19/22 02:21 02:24 02:29 Temperature Pulse Rate 57 L 60 65 Respiratory Rate Blood Pressure 131/64 O2 Sat by Pulse 94 96 Oximetry O2 Sat by Pulse Oximetry [ Bilateral] 07/19/22 07/19/22 07/19/22 02:34 02:39 02:44 Temperature Pulse Rate 69 77 63 Respiratory Rate Blood Pressure O2 Sat by Pulse 96 98 98 Oximetry O2 Sat by Pulse Oximetry [ Bilateral] 07/19/22 07/19/22 07/19/22 02:49 02:51 02:54 Temperature Pulse Rate 64 60 66 Respiratory Rate Blood Pressure 133/67 O2 Sat by Pulse 97 96 Oximetry O2 Sat by Pulse Oximetry [ Bilateral] 07/19/22 07/19/22 07/19/22 02:59 03:04 03:09 Temperature Pulse Rate 63 69 94 H Respiratory Rate Blood Pressure O2 Sat by Pulse 97 98 98 Oximetry O2 Sat by Pulse Oximetry [ Bilateral] 07/19/22 07/19/22 07/19/22 03:11 03:14 03:19 Temperature 98.5 F Pulse Rate 65 59 L Respiratory 18 Rate Blood Pressure O2 Sat by Pulse 98 98 98 Oximetry O2 Sat by Pulse Oximetry [ Bilateral] 0907/19/22 07/19/22 03:22 03:24 03:29 Temperature Pulse Rate 81 69 72 Respiratory Rate Blood Pressure 136/77 O2 Sat by Pulse 96 98 Oximetry O2 Sat by Pulse Oximetry [ Bilateral] 07/19/22 07/19/22 07/19/22 03:34 03:39 03:44 Temperature Pulse Rate 64 60 64 Respiratory Rate Blood Pressure O2 Sat by Pulse 98 97 97 Oximetry O2 Sat by Pulse Oximetry [ Bilateral] 07/19/22 07/19/22 07/19/22 03:49 03:51 03:54 Temperature Pulse Rate 68 77 65 Respiratory Rate Blood Pressure 141/68 O2 Sat by Pulse 97 94 96 Oximetry O2 Sat by Pulse Oximetry [ Bilateral] 07/19/22 07/19/22 07/19/22 03:59 04:04 04:09 Temperature Pulse Rate 57 L 61 59 L Respiratory Rate Blood Pressure O2 Sat by Pulse 98 98 98 Oximetry O2 Sat by Pulse Oximetry [ Bilateral] 07/19/22 07/19/22 07/19/22 04:14 04:19 04:23 Temperature Pulse Rate 60 67 61 Respiratory Rate Blood Pressure 120/56 O2 Sat by Pulse 98 98 Oximetry O2 Sat by Pulse Oximetry [ Bilateral] 07/19/22 07/19/22 07/19/22 04:24 04:39 04:41 Temperature Pulse Rate 75 71 71 Respiratory Rate Blood Pressure O2 Sat by Pulse 99 99 92 Oximetry O2 Sat by Pulse Oximetry [ Bilateral] 07/19/22 07/19/22 07/19/22 04:44 04:49 04:52 Temperature Pulse Rate 77 70 64 Respiratory Rate Blood Pressure 128/73 O2 Sat by Pulse 99 99 Oximetry O2 Sat by Pulse Oximetry [ Bilateral] 07/19/22 07/19/22 07/19/22 04:54 04:59 05:04 Temperature Pulse Rate 61 74 114 H Respiratory Rate Blood Pressure O2 Sat by Pulse 99 99 100 Oximetry O2 Sat by Pulse Oximetry [ Bilateral] 07/19/22 07/19/22 07/19/22 05:09 05:12 05:14 Temperature Pulse Rate 80 59 L 72 Respiratory Rate Blood Pressure O2 Sat by Pulse 98 82 L 97 Oximetry O2 Sat by Pulse Oximetry [ Bilateral] 07/19/22 07/19/22 07/19/22 05:17 05:19 05:21 Temperature Pulse Rate 87 72 60 Respiratory Rate Blood Pressure 124/59 O2 Sat by Pulse 85 97 Oximetry O2 Sat by Pulse Oximetry [ Bilateral] 07/19/22 07/19/22 07/19/22 05:24 05:26 05:29 Temperature Pulse Rate 77 76 73 Respiratory Rate Blood Pressure O2 Sat by Pulse 96 94 97 Oximetry O2 Sat by Pulse Oximetry [ Bilateral] 07/19/22 07/19/22 07/19/22 05:34 05:39 05:44 Temperature Pulse Rate 63 65 76 Respiratory Rate Blood Pressure O2 Sat by Pulse 97 96 96 Oximetry O2 Sat by Pulse Oximetry [ Bilateral] 07/19/22 07/19/22 07/19/22 05:49 05:53 05:54 Temperature Pulse Rate 84 88 81 Respiratory Rate Blood Pressure 144/75 O2 Sat by Pulse 98 98 Oximetry O2 Sat by Pulse Oximetry [ Bilateral] 07/19/22 07/19/22 07/19/22 05:59 06:04 06:07 Temperature Pulse Rate 68 94 H 66 Respiratory Rate Blood Pressure O2 Sat by Pulse 97 97 90 Oximetry O2 Sat by Pulse Oximetry [ Bilateral] 07/19/22 07/19/22 07/19/22 06:09 06:14 06:19 Temperature Pulse Rate 82 96 H 88 Respiratory Rate Blood Pressure O2 Sat by Pulse 98 100 97 Oximetry O2 Sat by Pulse Oximetry [ Bilateral] 07/19/22 07/19/22 07/19/22 06:23 06:24 06:29 Temperature Pulse Rate 96 H 73 95 H Respiratory Rate Blood Pressure 133/66 O2 Sat by Pulse 96 97 Oximetry O2 Sat by Pulse Oximetry [ Bilateral] 07/19/22 07/19/22 07/19/22 06:34 06:39 06:44 Temperature Pulse Rate 91 H 98 H 93 H Respiratory Rate Blood Pressure O2 Sat by Pulse 97 98 97 Oximetry O2 Sat by Pulse Oximetry [ Bilateral] 07/19/22 07/19/22 07/19/22 06:49 06:54 06:59 Temperature Pulse Rate 78 99 H 70 Respiratory Rate Blood Pressure O2 Sat by Pulse 97 98 97 Oximetry O2 Sat by Pulse Oximetry [ Bilateral] 07/19/22 07/19/22 07/19/22 07:04 07:06 07:09 Temperature Pulse Rate 88 63 102 H Respiratory Rate Blood Pressure 131/64 O2 Sat by Pulse 98 86 98 Oximetry O2 Sat by Pulse Oximetry [ Bilateral] 07/19/22 07/19/22 07/19/22 07:14 07:15 07:18 Temperature Pulse Rate 75 88 85 Respiratory Rate Blood Pressure 127/58 128/57 O2 Sat by Pulse 97 93 Oximetry O2 Sat by Pulse Oximetry [ Bilateral] 07/19/22 07/19/22 07/19/22 07:19 07:21 07:24 Temperature Pulse Rate 83 76 77 Respiratory Rate Blood Pressure 95/50 102/50 O2 Sat by Pulse 96 98 Oximetry O2 Sat by Pulse Oximetry [ Bilateral] 07/19/22 07/19/22 07/19/22 07:29 07:30 07:33 Temperature Pulse Rate 90 80 72 Respiratory Rate Blood Pressure 97/47 110/51 O2 Sat by Pulse 100 Oximetry O2 Sat by Pulse Oximetry [ Bilateral] 07/19/22 07/19/22 07/19/22 07:34 07:35 07:36 Temperature 98.8 F Pulse Rate 89 75 Respiratory 18 Rate Blood Pressure 115/56 O2 Sat by Pulse 99 98 Oximetry O2 Sat by Pulse Oximetry [ Bilateral] 07/19/22 07/19/22 07/19/22 07:38 07:39 07:41 Temperature Pulse Rate 69 68 75 Respiratory Rate Blood Pressure 107/53 105/51 O2 Sat by Pulse 99 Oximetry O2 Sat by Pulse Oximetry [ Bilateral] 07/19/22 07/19/22 07/19/22 07:44 07:47 07:49 Temperature Pulse Rate 74 77 79 Respiratory Rate Blood Pressure 106/53 110/54 O2 Sat by Pulse 100 98 Oximetry O2 Sat by Pulse Oximetry [ Bilateral] 07/19/22 07/19/22 07/19/22 07:50 07:53 07:54 Temperature Pulse Rate 67 74 69 Respiratory Rate Blood Pressure 102/52 103/55 O2 Sat by Pulse 100 Oximetry O2 Sat by Pulse Oximetry [ Bilateral] 07/19/22 07/19/22 07/19/22 07:57 07:59 08:00 Temperature Pulse Rate 63 72 60 Respiratory Rate Blood Pressure 105/51 96/49 O2 Sat by Pulse 99 Oximetry O2 Sat by Pulse Oximetry [ Bilateral] 07/19/22 07/19/22 07/19/22 08:03 08:04 08:05 Temperature Pulse Rate 85 85 79 Respiratory Rate Blood Pressure 112/57 103/53 O2 Sat by Pulse 98 Oximetry O2 Sat by Pulse Oximetry [ Bilateral] 07/19/22 07/19/22 07/19/22 08:06 08:09 08:12 Temperature Pulse Rate 67 68 Respiratory Rate Blood Pressure 91/54 97/51 O2 Sat by Pulse 99 Oximetry O2 Sat by Pulse 98 Oximetry [ Bilateral] 07/19/22 07/19/22 07/19/22 08:14 08:15 08:17 Temperature Pulse Rate 87 93 H 64 Respiratory Rate Blood Pressure 109/59 114/56 O2 Sat by Pulse 98 Oximetry O2 Sat by Pulse Oximetry [ Bilateral] 07/19/22 07/19/22 07/19/22 08:19 08:21 08:24 Temperature Pulse Rate 72 86 81 Respiratory Rate Blood Pressure 107/54 109/54 O2 Sat by Pulse 97 99 Oximetry O2 Sat by Pulse Oximetry [ Bilateral] 07/19/22 07/19/22 07/19/22 08:26 08:29 08:32 Temperature Pulse Rate 90 86 77 Respiratory Rate Blood Pressure 110/56 111/56 114/57 O2 Sat by Pulse 99 Oximetry O2 Sat by Pulse Oximetry [ Bilateral] 07/19/22 07/19/22 07/19/22 08:34 08:36 08:39 Temperature Pulse Rate 66 68 85 Respiratory Rate Blood Pressure 99/50 100/52 O2 Sat by Pulse 100 94 99 Oximetry O2 Sat by Pulse Oximetry [ Bilateral] 07/19/22 07/19/22 07/19/22 08:44 08:49 08:54 Temperature Pulse Rate 62 65 65 Respiratory Rate Blood Pressure O2 Sat by Pulse 99 99 100 Oximetry O2 Sat by Pulse Oximetry [ Bilateral] 07/19/22 07/19/22 07/19/22 08:57 08:59 09:04 Temperature Pulse Rate 57 L 85 64 Respiratory Rate Blood Pressure 103/55 O2 Sat by Pulse 98 99 Oximetry O2 Sat by Pulse Oximetry [ Bilateral] 07/19/22 07/19/22 07/19/22 09:09 09:11 09:14 Temperature Pulse Rate 64 85 66 Respiratory Rate Blood Pressure 103/53 O2 Sat by Pulse 99 96 Oximetry O2 Sat by Pulse Oximetry [ Bilateral] 07/19/22 07/19/22 07/19/22 09:19 09:24 09:26 Temperature Pulse Rate 93 H 75 66 Respiratory Rate Blood Pressure 102/53 O2 Sat by Pulse 98 98 Oximetry O2 Sat by Pulse Oximetry [ Bilateral] 07/19/22 07/19/22 07/19/22 09:29 09:34 09:39 Temperature Pulse Rate 66 64 80 Respiratory Rate Blood Pressure O2 Sat by Pulse 99 100 100 Oximetry O2 Sat by Pulse Oximetry [ Bilateral] 07/19/22 07/19/22 07/19/22 09:42 09:44 09:49 Temperature Pulse Rate 87 80 85 Respiratory Rate Blood Pressure 128/56 O2 Sat by Pulse 100 100 Oximetry O2 Sat by Pulse Oximetry [ Bilateral] 07/19/22 07/19/22 07/19/22 09:53 09:54 09:59 Temperature Pulse Rate 69 61 69 Respiratory Rate Blood Pressure O2 Sat by Pulse 89 87 100 Oximetry O2 Sat by Pulse Oximetry [ Bilateral] 07/19/22 10:04 Temperature 98.0 F Pulse Rate 65 Respiratory 18 Rate Blood Pressure O2 Sat by Pulse 100 Oximetry O2 Sat by Pulse Oximetry [ Bilateral] - Exam Breasts: deferred Cardiovascular: Regular rate Lungs: Normal air movement Abdomen: Present: soft. Absent: distention, tenderness, guarding (obese) Vulva: both: normal Uterus: Present: fundal height above umbilicus. Absent: tenderness FHR: category 2 (late decels noted. After verbal consent obtained AROM, IUPC and ISE placed w/o difficulty. Copious fluid, initially blood tinged then clear. Variables with FHT's 160's, good variability. Position changes and O2 placed. Wiill start gentlr amnio infusionand observe closely. ) Cervical Dilatation: 6 Cervical Effacement Percentage: 80 station: -2 Uterine Contraction Pattern: Regular Extremities: normal - Labs Labs: Abnormal Labs 07/18/22 07/19/22 10:18 03:09 MCV 78 L MCH 25 L RDW 15.8 H POC Glucose 60 L Laboratory Results - last 24 hr 07/18/22 07/18/22 07/18/22 10:18 10:18 13:33 WBC 8.3 RBC 4.12 Hgb 10.4 Hct 32.1 MCV 78 L MCH 25 L MCHC 32 RDW 15.8 H Plt Count 309 POC Glucose 72 SARS-CoV-2 (PCR) Blood Type A NEGATIVE Antibody Screen Negative 07/18/22 07/19/2207/19/22 13:50 00:09 03:09 WBC RBC Hgb Hct MCV MCH MCHC RDW Plt Count POC Glucose 74 60 L SARS-CoV-2 (PCR) Negative Blood Type Antibody Screen 07/19/22 04:26 WBC RBC Hgb Hct MCV MCH MCHC RDW Plt Count POC Glucose 88 SARS-CoV-2 (PCR) Blood Type Antibody Screen
[2022-07-19] MEDS ORDERED: SODIUM CHLORIDE 0.9% 1000 ML 1,000 ML VG SCH (10:30)
[2022-07-19] MEDS ORDERED: FAMOTIDINE 20 MG/2 ML INJ IV ONE (11:10)
[2022-07-19] MEDS ORDERED: BICITRA ORAL LIQD 30ML PO ONE (11:10)
[2022-07-19] MEDS ORDERED: METOCLOPRAMIDE 10 MG/2 ML INJ IV ONE (11:10)
[2022-07-19] MEDS ORDERED: LACTATED RINGERS 1,000 ML IV SCH (11:15)
--- NOTE | 2022-07-19 11:18 | Progress Note ---
Assessment and Plan Persistent cat 2 fht's. Patient voiced concern for well being. Strip and concerns also discussed.Overall strip ok however concern for deterioriation explained. Risk associated with delivery were discussed, including but not limited to, bleeding that may require blood transfusion, infection that may be life threatening, injury to adjacent organs specifically bowel or bladder that may require further surgeries, or major vascular injury. She was also informed that when she has had a delivery she may require repeat deliveries for all subsequent pregnancies. Questions were encouraged and answered, consents were reviewed and signed. Patient voiced understanding and desires to proceed with delivery. - Patient Problems (1) 37 weeks gestation of Current Visit: Yes Status: Acute (2) GBS (group B streptococcus) infection Current Visit: Yes Status: Acute (3) Diabetes mellitus type 2 in obese Onset Date: ~03/17/20 Current Visit: No Status: Chronic (4) Sterilization Current Visit: Yes Status: Acute Plan to address problem: Risk of regret emphasized. Permanent and irreversible condition explained to patient. Options for sterilization reviewed. Patient desires to proceed with bilateral salpingectomy to decrease her risk for ovarian cancer. Indication for boarding salpingectomy and proceeding with methods of sterilization explained. Discussed possible 1% failure rate as well. Questions were encouraged and answered. Consents were reviewed and signed. Patient voiced understanding desires to proceed with bilateral salpingectomy for sterilization. Subjective - Subjective Date of service: 07/19/22 Principal diagnosis: IUP @ 37.1 wks, Type 2 DM, insulin controlled Patient reports: new complaints (CTX pain, requesting epidural), movement normal, contractions Objective - Vital Signs Vital Signs: Vital Signs - 12hr 07/18/22 07/18/22 07/18/22 23:14 23:19 23:22 Temperature Pulse Rate 65 62 54 L Respiratory Rate Blood Pressure 125/60 O2 Sat by Pulse 98 98 Oximetry O2 Sat by Pulse Oximetry [ Bilateral] 07/18/22 07/18/22 07/18/22 23:24 23:29 23:34 Temperature Pulse Rate 60 58 L 59 L Respiratory Rate Blood Pressure O2 Sat by Pulse 99 97 99 Oximetry O2 Sat by Pulse Oximetry [ Bilateral] 07/18/22 07/18/22 07/18/22 23:36 23:39 23:44 Temperature 98 F Pulse Rate 68 62 Respiratory 18 Rate Blood Pressure O2 Sat by Pulse 99 98 99 Oximetry O2 Sat by Pulse Oximetry [ Bilateral] 07/18/22 07/18/22 07/18/22 23:49 23:53 23:54 Temperature Pulse Rate 60 58 L 78 Respiratory Rate Blood Pressure 129/63 O2 Sat by Pulse 99 97 Oximetry O2 Sat by Pulse Oximetry [ Bilateral] 07/18/22 07/19/22 07/19/22 23:59 00:04 00:09 Temperature Pulse Rate 69 66 57 L Respiratory Rate Blood Pressure O2 Sat by Pulse 97 98 98 Oximetry O2 Sat by Pulse Oximetry [ Bilateral] 07/19/22 07/19/22 07/19/22 00:14 00:19 00:21 Temperature Pulse Rate 66 58 L 65 Respiratory Rate Blood Pressure 128/72 O2 Sat by Pulse 98 99 Oximetry O2 Sat by Pulse Oximetry [ Bilateral] 07/19/22 07/19/22 07/19/22 00:24 00:27 00:29 Temperature Pulse Rate 56 L 61 59 L Respiratory Rate Blood Pressure O2 Sat by Pulse 100 94 98 Oximetry O2 Sat by Pulse Oximetry [ Bilateral] 07/19/22 07/19/22 07/19/22 00:34 00:39 00:44 Temperature Pulse Rate 73 66 69 Respiratory Rate Blood Pressure O2 Sat by Pulse 98 97 97 Oximetry O2 Sat by Pulse Oximetry [ Bilateral] 07/19/22 07/19/22 07/19/22 00:49 00:51 00:54 Temperature Pulse Rate 61 56 L 64 Respiratory Rate Blood Pressure 129/61 O2 Sat by Pulse 98 98 Oximetry O2 Sat by Pulse Oximetry [ Bilateral] 07/19/22 07/19/22 07/19/22 00:59 01:04 01:09 Temperature Pulse Rate 54 L 59 L 57 L Respiratory Rate Blood Pressure O2 Sat by Pulse 98 99 98 Oximetry O2 Sat by Pulse Oximetry [ Bilateral] 07/19/22 07/19/22 07/19/22 01:14 01:19 01:23 Temperature Pulse Rate 62 59 L 52 L Respiratory Rate Blood Pressure 136/75 O2 Sat by Pulse 99 98 Oximetry O2 Sat by Pulse Oximetry [ Bilateral] 07/19/22 07/19/22 07/19/22 01:24 01:29 01:34 Temperature Pulse Rate 67 66 63 Respiratory Rate Blood Pressure O2 Sat by Pulse 99 98 98 Oximetry O2 Sat by Pulse Oximetry [ Bilateral] 07/19/22 07/19/22 07/19/22 01:35 01:39 01:44 Temperature Pulse Rate 64 54 L 66 Respiratory Rate Blood Pressure O2 Sat by Pulse 84 99 97 Oximetry O2 Sat by Pulse Oximetry [ Bilateral] 07/19/22 07/19/22 07/19/22 01:49 01:53 01:54 Temperature Pulse Rate 60 60 60 Respiratory Rate Blood Pressure 127/61 O2 Sat by Pulse 97 97 Oximetry O2 Sat by Pulse Oximetry [ Bilateral] 07/19/22 07/19/22 07/19/22 01:59 02:04 02:09 Temperature Pulse Rate 62 68 61 Respiratory Rate Blood Pressure O2 Sat by Pulse 97 95 97 Oximetry O2 Sat by Pulse Oximetry [ Bilateral] 07/19/22 07/19/22 07/19/22 02:14 02:19 02:21 Temperature Pulse Rate 99 H 63 57 L Respiratory Rate Blood Pressure 131/64 O2 Sat by Pulse 97 97 Oximetry O2 Sat by Pulse Oximetry [ Bilateral] 07/19/22 07/19/22 07/19/22 02:24 02:29 02:34 Temperature Pulse Rate 60 65 69 Respiratory Rate Blood Pressure O2 Sat by Pulse 94 96 96 Oximetry O2 Sat by Pulse Oximetry [ Bilateral] 07/19/22 07/19/22 07/19/22 02:39 02:44 02:49 Temperature Pulse Rate 77 63 64 Respiratory Rate Blood Pressure O2 Sat by Pulse 98 98 97 Oximetry O2 Sat by Pulse Oximetry [ Bilateral] 07/19/22 07/19/22 07/19/22 02:51 02:54 02:59 Temperature Pulse Rate 60 66 63 Respiratory Rate Blood Pressure 133/67 O2 Sat by Pulse 96 97 Oximetry O2 Sat by Pulse Oximetry [ Bilateral] 07/19/22 07/19/22 07/19/22 03:04 03:09 03:11 Temperature 98.5 F Pulse Rate 69 94 H Respiratory 18 Rate Blood Pressure O2 Sat by Pulse 98 98 98 Oximetry O2 Sat by Pulse Oximetry [ Bilateral] 07/19/22 07/19/22 07/19/22 03:14 03:19 03:22 Temperature Pulse Rate 65 59 L 81 Respiratory Rate Blood Pressure 136/77 O2 Sat by Pulse 98 98 Oximetry O2 Sat by Pulse Oximetry [ Bilateral] 07/19/22 07/19/22 07/19/22 03:24 03:29 03:34 Temperature Pulse Rate 69 72 64 Respiratory Rate Blood Pressure O2 Sat by Pulse 96 98 98 Oximetry O2 Sat by Pulse Oximetry [ Bilateral] 07/19/22 07/19/22 07/19/22 03:39 03:44 03:49 Temperature Pulse Rate 60 64 68 Respiratory Rate Blood Pressure O2 Sat by Pulse 97 97 97 Oximetry O2 Sat by Pulse Oximetry [ Bilateral] 07/19/22 07/19/22 07/19/22 03:51 03:54 03:59 Temperature Pulse Rate 77 65 57 L Respiratory Rate Blood Pressure 141/68 O2 Sat by Pulse 94 96 98 Oximetry O2 Sat by Pulse Oximetry [ Bilateral] 07/19/22 07/19/22 07/19/22 04:04 04:09 04:14 Temperature Pulse Rate 61 59 L 60 Respiratory Rate Blood Pressure O2 Sat by Pulse 98 98 98 Oximetry O2 Sat by Pulse Oximetry [ Bilateral] 07/19/22 07/19/22 07/19/22 04:19 04:23 04:24 Temperature Pulse Rate 67 61 75 Respiratory Rate Blood Pressure 120/56 O2 Sat by Pulse 98 99 Oximetry O2 Sat by Pulse Oximetry [ Bilateral] 07/19/22 07/19/22 07/19/22 04:39 04:41 04:44 Temperature Pulse Rate 71 71 77 Respiratory Rate Blood Pressure O2 Sat by Pulse 99 92 99 Oximetry O2 Sat by Pulse Oximetry [ Bilateral] 07/19/22 07/19/22 07/19/22 04:49 04:52 04:54 Temperature Pulse Rate 70 64 61 Respiratory Rate Blood Pressure 128/73 O2 Sat by Pulse 99 99 Oximetry O2 Sat by Pulse Oximetry [ Bilateral] 07/19/22 07/19/22 07/19/22 04:59 05:04 05:09 Temperature Pulse Rate 74 114 H 80 Respiratory Rate Blood Pressure O2 Sat by Pulse 99 100 98 Oximetry O2 Sat by Pulse Oximetry [ Bilateral] 07/19/22 07/19/22 07/19/22 05:12 05:14 05:17 Temperature Pulse Rate 59 L 72 87 Respiratory Rate Blood Pressure O2 Sat by Pulse 82 L 97 85 Oximetry O2 Sat by Pulse Oximetry [ Bilateral] 07/19/22 07/19/22 07/19/22 05:19 05:21 05:24 Temperature Pulse Rate 72 60 77 Respiratory Rate Blood Pressure 124/59 O2 Sat by Pulse 97 96 Oximetry O2 Sat by Pulse Oximetry [ Bilateral] 07/19/22 07/19/22 07/19/22 05:26 05:29 05:34 Temperature Pulse Rate 76 73 63 Respiratory Rate Blood Pressure O2 Sat by Pulse 94 97 97 Oximetry O2 Sat by Pulse Oximetry [ Bilateral] 07/19/22 07/19/22 07/19/22 05:39 05:44 05:49 Temperature Pulse Rate 65 76 84 Respiratory Rate Blood Pressure O2 Sat by Pulse 96 96 98 Oximetry O2 Sat by Pulse Oximetry [ Bilateral] 07/19/22 07/19/22 07/19/22 05:53 05:54 05:59 Temperature Pulse Rate 88 81 68 Respiratory Rate Blood Pressure 144/75 O2 Sat by Pulse 98 97 Oximetry O2 Sat by Pulse Oximetry [ Bilateral] 07/19/22 07/19/22 07/19/22 06:04 06:07 06:09 Temperature Pulse Rate 94 H 66 82 Respiratory Rate Blood Pressure O2 Sat by Pulse 97 90 98 Oximetry O2 Sat by Pulse Oximetry [ Bilateral] 07/19/22 07/19/22 07/19/22 06:14 06:19 06:23 Temperature Pulse Rate 96 H 88 96 H Respiratory Rate Blood Pressure 133/66 O2 Sat by Pulse 100 97 Oximetry O2 Sat by Pulse Oximetry [ Bilateral] 07/19/22 07/19/22 07/19/22 06:24 06:29 06:34 Temperature Pulse Rate 73 95 H 91 H Respiratory Rate Blood Pressure O2 Sat by Pulse 96 97 97 Oximetry O2 Sat by Pulse Oximetry [ Bilateral] 07/19/22 07/19/22 07/19/22 06:39 06:44 06:49 Temperature Pulse Rate 98 H 93 H 78 Respiratory Rate Blood Pressure O2 Sat by Pulse 98 97 97 Oximetry O2 Sat by Pulse Oximetry [ Bilateral] 07/19/22 07/19/22 07/19/22 06:54 06:59 07:04 Temperature Pulse Rate 99 H 70 88 Respiratory Rate Blood Pressure O2 Sat by Pulse 98 97 98 Oximetry O2 Sat by Pulse Oximetry [ Bilateral] 07/19/22 07/19/22 07/19/22 07:06 07:09 07:14 Temperature Pulse Rate 63 102 H 75 Respiratory Rate Blood Pressure 131/64 O2 Sat by Pulse 86 98 97 Oximetry O2 Sat by Pulse Oximetry [ Bilateral] 07/19/22 07/19/22 07/19/22 07:15 07:18 07:19 Temperature Pulse Rate 88 85 83 Respiratory Rate Blood Pressure 127/58 128/57 O2 Sat by Pulse 93 96 Oximetry O2 Sat by Pulse Oximetry [ Bilateral] 07/19/22 07/19/22 07/19/22 07:21 07:24 07:29 Temperature Pulse Rate 76 77 90 Respiratory Rate Blood Pressure 95/50 102/50 O2 Sat by Pulse 98 100 Oximetry O2 Sat by Pulse Oximetry [ Bilateral] 07/19/22 07/19/22 07/19/22 07:30 07:33 07:34 Temperature Pulse Rate 80 72 89 Respiratory Rate Blood Pressure 97/47 110/51 O2 Sat by Pulse 99 Oximetry O2 Sat by Pulse Oximetry [ Bilateral] 07/19/22 07/19/22 07/19/22 07:35 07:36 07:38 Temperature 98.8 F Pulse Rate 75 69 Respiratory 18 Rate Blood Pressure 115/56 107/53 O2 Sat by Pulse 98 Oximetry O2 Sat by Pulse Oximetry [ Bilateral] 07/19/22 07/19/22 07/19/22 07:39 07:41 07:44 Temperature Pulse Rate 68 75 74 Respiratory Rate Blood Pressure 105/51 106/53 O2 Sat by Pulse 99 100 Oximetry O2 Sat by Pulse Oximetry [ Bilateral] 07/19/22 07/19/22 07/19/22 07:47 07:49 07:50 Temperature Pulse Rate 77 79 67 Respiratory Rate Blood Pressure 110/54 102/52 O2 Sat by Pulse 98 Oximetry O2 Sat by Pulse Oximetry [ Bilateral] 07/19/22 07/19/22 07/19/22 07:53 07:54 07:57 Temperature Pulse Rate 74 69 63 Respiratory Rate Blood Pressure 103/55 105/51 O2 Sat by Pulse 100 Oximetry O2 Sat by Pulse Oximetry [ Bilateral] 07/19/22 07/19/22 07/19/22 07:59 08:00 08:03 Temperature Pulse Rate 72 60 85 Respiratory Rate Blood Pressure 96/49 112/57 O2 Sat by Pulse 99 Oximetry O2 Sat by Pulse Oximetry [ Bilateral] 07/19/22 07/19/22 07/19/22 08:04 08:05 08:06 Temperature Pulse Rate 85 79 Respiratory Rate Blood Pressure 103/53 O2 Sat by Pulse 98 Oximetry O2 Sat by Pulse 98 Oximetry [ Bilateral] 07/19/22 07/19/22 07/19/22 08:09 08:12 08:14 Temperature Pulse Rate 67 68 87 Respiratory Rate Blood Pressure 91/54 97/51 O2 Sat by Pulse 99 98 Oximetry O2 Sat by Pulse Oximetry [ Bilateral] 07/19/22 07/19/22 07/19/22 08:15 08:17 08:19 Temperature Pulse Rate 93 H 64 72 Respiratory Rate Blood Pressure 109/59 114/56 O2 Sat by Pulse 97 Oximetry O2 Sat by Pulse Oximetry [ Bilateral] 07/19/22 07/19/22 07/19/22 08:21 08:24 08:26 Temperature Pulse Rate 86 81 90 Respiratory Rate Blood Pressure 107/54 109/54 110/56 O2 Sat by Pulse 99 Oximetry O2 Sat by Pulse Oximetry [ Bilateral] 07/19/22 07/19/22 07/19/22 08:29 08:32 08:34 Temperature Pulse Rate 86 77 66 Respiratory Rate Blood Pressure 111/56 114/57 O2 Sat by Pulse 99 100 Oximetry O2 Sat by Pulse Oximetry [ Bilateral] 07/19/22 07/19/22 07/19/22 08:36 08:39 08:44 Temperature Pulse Rate 68 85 62 Respiratory Rate Blood Pressure 99/50 100/52 O2 Sat by Pulse 94 99 99 Oximetry O2 Sat by Pulse Oximetry [ Bilateral] 07/19/22 07/19/22 07/19/22 08:49 08:54 08:57 Temperature Pulse Rate 65 65 57 L Respiratory Rate Blood Pressure 103/55 O2 Sat by Pulse 99 100 Oximetry O2 Sat by Pulse Oximetry [ Bilateral] 07/19/22 07/19/22 07/19/22 08:59 09:04 09:09 Temperature Pulse Rate 85 64 64 Respiratory Rate Blood Pressure O2 Sat by Pulse 98 99 99 Oximetry O2 Sat by Pulse Oximetry [ Bilateral] 07/19/22 07/19/22 07/19/22 09:11 09:14 09:19 Temperature Pulse Rate 85 66 93 H Respiratory Rate Blood Pressure 103/53 O2 Sat by Pulse 96 98 Oximetry O2 Sat by Pulse Oximetry [ Bilateral] 07/19/22 07/19/22 07/19/22 09:24 09:26 09:29 Temperature Pulse Rate 75 66 66 Respiratory Rate Blood Pressure 102/53 O2 Sat by Pulse 98 99 Oximetry O2 Sat by Pulse Oximetry [ Bilateral] 07/19/22 07/19/22 07/19/22 09:34 09:39 09:42 Temperature Pulse Rate 64 80 87 Respiratory Rate Blood Pressure 128/56 O2 Sat by Pulse 100 100 Oximetry O2 Sat by Pulse Oximetry [ Bilateral] 07/19/22 07/19/22 07/19/22 09:44 09:49 09:53 Temperature Pulse Rate 80 85 69 Respiratory Rate Blood Pressure O2 Sat by Pulse 100 100 89 Oximetry O2 Sat by Pulse Oximetry [ Bilateral] 07/19/22 07/19/22 07/19/22 09:54 09:59 10:04 Temperature 98.0 F Pulse Rate 61 69 65 Respiratory 18 Rate Blood Pressure O2 Sat by Pulse 87 100 100 Oximetry O2 Sat by Pulse Oximetry [ Bilateral] 07/19/22 07/19/22 07/19/22 10:09 10:12 10:14 Temperature Pulse Rate 63 75 60 Respiratory Rate Blood Pressure 135/66 O2 Sat by Pulse 100 100 Oximetry O2 Sat by Pulse Oximetry [ Bilateral] 07/19/22 07/19/22 07/19/22 10:19 10:24 10:26 Temperature Pulse Rate 68 60 57 L Respiratory Rate Blood Pressure 99/52 O2 Sat by Pulse 100 100 Oximetry O2 Sat by Pulse Oximetry [ Bilateral] 07/19/22 07/19/22 07/19/22 10:29 10:34 10:39 Temperature Pulse Rate 75 85 60 Respiratory Rate Blood Pressure O2 Sat by Pulse 100 100 100 Oximetry O2 Sat by Pulse Oximetry [ Bilateral] 07/19/22 07/19/22 07/19/22 10:41 10:44 10:49 Temperature Pulse Rate 81 64 65 Respiratory Rate Blood Pressure 113/54 O2 Sat by Pulse 100 100 Oximetry O2 Sat by Pulse Oximetry [ Bilateral] 07/19/22 07/19/22 07/19/22 10:54 10:56 10:59 Temperature Pulse Rate 63 70 58 L Respiratory Rate Blood Pressure 100/52 O2 Sat by Pulse 100 100 Oximetry O2 Sat by Pulse Oximetry [ Bilateral] 07/19/22 07/19/22 11:04 11:09 Temperature Pulse Rate 62 61 Respiratory Rate Blood Pressure O2 Sat by Pulse 100 100 Oximetry O2 Sat by Pulse Oximetry [ Bilateral] - Exam FHR: category 2 (Still with variables however variability decreased. ) Cervical Dilatation: 6 Cervical Effacement Percentage: 80 station: -1 Uterine Contraction Pattern: Regular - Labs Labs: Abnormal Labs 07/18/22 07/19/22 10:18 03:09 MCV 78 L MCH 25 L RDW 15.8 H POC Glucose 60 L Laboratory Results - last 24 hr 07/18/22 07/18/22 07/18/22 10:18 10:18 13:33 WBC 8.3 RBC 4.12 Hgb 10.4 Hct 32.1 MCV 78 L MCH 25 L MCHC 32 RDW 15.8 H Plt Count 309 POC Glucose 72 SARS-CoV-2 (PCR) Blood Type A NEGATIVE Antibody Screen Negative 07/18/22 07/19/22 07/19/22 13:50 00:09 03:09 WBC RBC Hgb Hct MCV MCH MCHC RDW Plt Count POC Glucose 74 60 L SARS-CoV-2 (PCR) Negative Blood Type Antibody Screen 07/19/22 04:26 WBC RBC Hgb Hct MCV MCH MCHC RDW Plt Count POC Glucose 88 SARS-CoV-2 (PCR) Blood Type Antibody Screen
[2022-07-19] MEDS ORDERED: OXYTOCIN DRIP 30 UNITS/500 ML BAG IV SCH ×2 (12:00→15:47)
[2022-07-19] MEDS ORDERED: ceFAZolin/Water 2 GM/20 ML 2 GM/20 ML SYRINGE IV NR (12:00)
[2022-07-19] MEDS ORDERED: ceFAZolin/STERILE WATER 2 GM/20 ML SYRINGE IV ONE (12:30)
[2022-07-19] MEDS ORDERED: ePHEDrine SULFATE 50 MG/1 ML INJ ONE (12:38)
[2022-07-19] MEDS ORDERED: BUPIVACAINE/PF (0.25%) 2.5 MG/ML 30 ML VIAL INFILTRATI ONE (12:38)
[2022-07-19] MEDS ORDERED: ONDANSETRON 4 MG/2 ML INJ ONE (12:38)
[2022-07-19] MEDS ORDERED: TRANEXAMIC ACID 1,000 MG/10 ML ONE (12:38)
[2022-07-19] MEDS ORDERED: PHENYLEPHRINE/NS 1,000 MCG/10 ML SYRINGE (OR USE) IV ONE (12:38)
[2022-07-19] MEDS ORDERED: PROMETHAZINE 25 MG TAB PO PRN (14:13)
[2022-07-19] MEDS ORDERED: HYDROmorphone 1 MG/1 ML INJ IV PRN ×2 (14:13)
[2022-07-19] MEDS ORDERED: MORPHINE 4 MG/1 ML INJ IV PRN ×2 (14:13→15:47)
[2022-07-19] MEDS ORDERED: ONDANSETRON 4 MG/2 ML INJ IV PRN ×2 (14:13→15:47)
[2022-07-19] MEDS ORDERED: PROMETHAZINE 25 MG RECT SUPP PR PRN ×2 (14:13→15:47)
--- NOTE | 2022-07-19 14:15 | Progress Note ---
Regional Anesthesia Block - Regional Anesthesia Block Start Time: 13:43 Stop Time: 13:49 Performed By:: ERNESTO CHAN Procedure: After Pts C/S was completed a time out was performed prior to the start of the procedure. The Trans Abdominal Plane was identified bilaterally via ultrasound. The skin was prepped bilaterally with chlorhexidine and a 22g stimuplex needle was advanced to the area between the internal oblique muscle and the trans abdominal plane. Marcaine 0.25% 30mlwas injected under ultrasound guidance on the left and right side. Negative aspiration every 5mL, There was no change in the patients heart rate or rhythm and the patient tolerated the procedure well. No apparent complications were observed.
--- NOTE | 2022-07-19 14:29 | Operative Report ---
Operative Report Operative Report: Date of operation: 07/19/2022 Pre-operative diagnosis: 1. Intrauterine at 37 weeks gestational age 2. Type 2 diabetes mellitus 3. Failure to dilate 4. BMI 37.6 kg/m2 5. Persistent category 2 heart tone trace Post-operative diagnosis: 1. Intrauterine at 37 weeks gestational age 2. Type 2 diabetes mellitus 3. Failure to dilate 4. BMI 37.6 kg/m2 5. Persistent category 2 heart tone trace Procedure name(s): Primary low transverse uterine incision Surgeon: Linnette Hawthorne MD Tug Master: Sherita Mann CNM Anesthesia: Epidural QBL: 1014 mL Urine output: 600 mL of clear urine out at the end of the procedure Fluids: 2000 mL Findings: Liveborn male infant weight 9 Lbs. 13 oz. Apgars of 1 and 6 at one and 5 minutes, Apgars 8 at 10 minutes Indications: Patient was admitted for induction for type 2 diabetes mellitus. On admission cervix was 0 and 70% effaced. She was started on Pitocin for induction. Patient progressed to 5 cm however suspicious decelerations were noted. AROM was performed with placement of internal monitors. Pitocin was discontinued. Category 2 strip continued and in spite of position change, IV fluid bolus, amnioinfusion. She had no cervical change. After discussing the findings with the patient risk and benefits patient agreed to proceed with delivery. Procedure: Patient was taking to the operating room. Epidural anesthesia was bolused. Patient was then prepped and draped in the usual sterile fashion Timeout was performed. Once an appropriate level of anesthesia was noted, a Pfannenstiel incision was made and extended the fascia which was incised and extended lateral direction. The overlying fascia was sharply dissected away from the underlying rectus muscles in the superior inferior direction. The midline was entered bluntly. Bladder blade was placed. Vesicouterine fold was incised with blunt dissection bladder flap was created. A transverse incision was made in the lower uterine segment and extended superolateral direction with finger fractionation. Clear fluid was noted. was delivered from the cephalic OP position, with gasp and excellent tone. Mouth and nose bulb suctioned. Cord was doubly clamped and cut was given to the resuscitation team present. Placenta was delivered. The uterus was exteriorized and cleaned of any further placental tissue and products of conception. Uterine incision was approximated using 0 Vicryl in a running interlocking stitch followed by further suture of 0 Vicryl in imbricating fashion. When hemostasis was noted the uterus was allowed back in the pelvic cavity. Pelvis was irrigated with warm normal saline. Once hemostasis was noted the rectus muscles were approximated using 0 Vicryl interrupted simple stitches 3. Once hemostasis was noted the fascia was approximated using 0 Vicryl simple running stitch. The incision was irrigated with warm saline, once hemostasis as noted, the subcuticular adipose tissue was reapproximated using 3- 0 Vicryl in a simple running fashion. Skin was approximated using 4-0 Vicryl on a Benito needle in a subcuticular manner. Counts were correct x3. Patient tolerated the procedure well, she was taken to recovery room in stable condition. Of note patient initially stated she wanted sterilization and the consent was signed with that procedure included. However patient had not signed consents for sterilization in the office. Concern for regret and hasty decision inv olving a permanent procedure discussed. The decision was made not to proceed with sterilization prior to moving patient to the OR.
[2022-07-19] MEDS ORDERED: SENNOSIDES 8.6 MG TAB PO PRN (15:47)
[2022-07-19] MEDS ORDERED: D5W/LACTATED RINGERS 1,000 ML IV SCH (15:47)
[2022-07-19] MEDS ORDERED: MORPHINE 2 MG/1 ML INJ IV PRN (15:47)
[2022-07-19] MEDS ORDERED: SIMETHICONE 80 MG CHEW TAB PO PRN (15:47)
[2022-07-19] MEDS ORDERED: WITCH HAZEL/ GLYCERIN PAD TP PRN (15:47)
[2022-07-19] MEDS ORDERED: LANOLIN/ZINC/DIMETHICONE (LANSINOH) 7 GM TP PRN (15:47)
[2022-07-19] MEDS ORDERED: IBUPROFEN 800 MG TAB PO PRN (15:47)
[2022-07-19] MEDS ORDERED: MAGNESIUM HYDROXIDE (MOM) ORAL LIQD UDC PO PRN (15:47)
[2022-07-19] MEDS: ceFAZolin/NS 1 GM/50 ML 1 GM/50 ML BAG IV SCH (16:15)
[2022-07-19] MEDS: KETOROLAC 30 MG/1 ML INJ IV SCH (16:31)
[2022-07-19] MEDS ORDERED: INSULIN REGULAR, HUMAN 100 UNITS/1 ML SUB-Q SCH ×2 (17:00→22:00)
[2022-07-19] MEDS: INSULIN REGULAR, HUMAN 100 UNITS/1 ML SUB-Q SCH (17:49)
[2022-07-19] MEDS ORDERED: SODIUM CHLORIDE 0.9% 1000 ML 1,000 ML IV SCH (18:45)
[2022-07-19] MEDS: ACETAMINOPHEN 325 MG TAB PO SCH (21:12)
[2022-07-19] MEDS ORDERED: INSULIN NPH, HUMAN 100 UNIT/1 ML SUB-Q SCH (22:00)
[2022-07-20] MEDS: ceFAZolin/NS 1 GM/50 ML 1 GM/50 ML BAG IV SCH (00:09)
[2022-07-20] MEDS: KETOROLAC 30 MG/1 ML INJ IV SCH ×2 (00:36→08:40)
[2022-07-20 01:09] LABS: Hematocrit 27.6 % (30.3-42.9); Hemoglobin 8.7 gm/dl (10.1-14.3)
[2022-07-20] MEDS: ACETAMINOPHEN 325 MG TAB PO SCH ×2 (05:30→14:00)
[2022-07-20] MEDS ORDERED: INSULIN NPH, HUMAN 100 UNIT/1 ML SUB-Q SCH (08:00)
[2022-07-20] MEDS ORDERED: INSULIN REGULAR, HUMAN 100 UNITS/1 ML SUB-Q SCH ×2 (08:00→12:00)
[2022-07-20] MEDS: INSULIN REGULAR, HUMAN 100 UNITS/1 ML SUB-Q SCH ×3 (08:24→17:35)
[2022-07-20] MEDS ORDERED: FERROUS SULFATE 325 MG TAB PO SCH (10:00)
[2022-07-20] MEDS ORDERED: PRENATAL VIT27-FE FUMARATE-FOLIC ACID VIT TAB PO SCH (10:00)
--- NOTE | 2022-07-20 10:27 | Progress Note ---
Assessment and Plan - Patient Problems (1) Diabetes mellitus type 2 in obese Onset Date: ~03/17/20 Current Visit: No Status: Chronic Plan to address problem: Accu Checks ACHS Sliding scale insulin and NPH (2) delivery delivered Current Visit: Yes Status: Acute Plan to address problem: Continue pathway ambulation pain management Subjective - Subjective Date of service: 07/20/22 Principal diagnosis: IUP @ 37.1 wks, Type 2 DM, insulin controlled Interval history: pt in bed tearful. Reports baby in NICU for troubles with breathing, also pain 05/30. Notified nurse she needs pain medication. Plans to breast and formula feed at this time because baby in NICU. Encouraged use of breast pump. Wanted a tubal for B/C, states will decide at ppv. Does not desire Circ for son. Fundus firm, lochia normal. Surgical dressing dry and intact, to be removed this evening. Discharge planning for tomorrow. Patient reports: appetite normal, voiding normally, pain poorly controlled [place]: in NICU Objective - Vital Signs Latest vital signs: Vital Signs Temp Pulse Resp BP BP Pulse Ox Pulse Ox 07/20/22 08:40 16 07/20/22 05:09 98.4 F 92 H 20 113/67 98 07/20/22 02:30 98.1 F 103 H 20 129/63 97 07/19/22 21:31 98.4 F 85 20 124/66 100 07/19/22 19:30 98 07/19/22 16:10 99 07/19/22 15:47 99.0 F 96 H 12 144/77 07/19/22 14:56 100 H 20 145/61 99 07/19/22 14:35 106 H 19 130/71 100 07/19/22 14:20 98.7 F 101 H 22 127/64 99 07/19/22 14:05 103 H 20 127/73 99 07/19/22 13:52 109 H 24 124/40 100 07/19/22 13:47 105 H 18 133/47 100 07/19/22 13:42 115 H 16 98/53 100 07/19/22 13:37 98.5 F 118 H 24 119/34 100 07/19/22 12:14 89 133/62 100 07/19/22 12:09 82 100 07/19/22 12:04 71 100 07/19/22 11:59 66 100 07/19/22 11:58 67 112/54 07/19/22 11:54 65 100 07/19/22 11:49 60 100 07/19/22 11:44 82 100 07/19/22 11:42 66 114/56 07/19/22 11:39 62 99 07/19/22 11:34 64 100 07/19/22 11:29 60 98 07/19/22 11:27 59 L 103/51 07/19/22 11:24 63 100 07/19/22 11:19 60 100 07/19/22 11:14 55 L 100 07/19/22 11:13 56 L 110/53 07/19/22 11:09 61 100 07/19/22 11:04 62 100 07/19/22 10:59 58 L 100 07/19/22 10:56 70 100/52 07/19/22 10:54 63 100 07/19/22 10:49 65 100 07/19/22 10:44 64 100 07/19/22 10:41 81 113/54 07/19/22 10:39 60 100 07/19/22 10:34 85 100 07/19/22 10:29 75 100 07/19/22 10:26 57 L 99/52 07/19/22 10:24 60 100 Intake and Output 07/19/22 07/20/22 07/20/22 23:59 07:59 15:59 Intake Total 250 240 Output Total 1700 200 Balance -1450 40 Intake: IV 50 ANCEF/NS 1 GM/50 ML 1 gm 50 In 50 ml @ 100 mls/hr IV Q8H [facility] Rx#:[id number] Oral 200 Intake, Free Water 240 Output: Urine 1700 200 Indwelling Catheter 1500 Uretheral (Singh) 200 Void 200 Other: Total, Intake Amount 200 Total, Output Amount 1500 200 # Voids Indwelling Catheter 400 - Exam Breasts: Present: normal Cardiovascular: Present: Regular rate, Normal S1, Normal S2 Lungs: Present: Clear to auscultation, Normal air movement Abdomen: Present: normal appearance, soft Uterus: Present: firm Extremities: Present: normal Incision: Present: normal, dry, intact, dressed Comments: Dressing clean dry and intact. - Labs Labs: Abnormal lab results 07/19/22 07/19/22 07/19/22 Range/Units 08:13 10:28 17:00 Hgb (10.1-14.3) gm/dl Hct (30.3-42.9) % POC Glucose 117 H 114 H 183 H (70-105) mg/dL 07/20/22 07/20/22 Range/Units 00:01 00:40 Hgb 8.7 L (10.1-14.3) gm/dl Hct 27.6 L (30.3-42.9) % POC Glucose 201 H (70-105) mg/dL
[2022-07-20] MEDS: oxyCODONE /ACETAMINOPHEN 5-325MG TAB PO PRN ×2 (13:55→20:16)
[2022-07-20] MEDS ORDERED: TETANUS,DIPH,PERTUSS(ACELL) VACCINE 0.5 ML SYRINGE IM ONE (14:05)
[2022-07-20 17:00] VITALS: BP 135/59
--- NOTE | 2022-07-20 21:47 | Post Anesthesia Evaluation ---
- Post Anesthesia Evaluation Patient Participated: No Airway Patent: Yes Stable Respiratory Function: Yes Nausea/Vomiting: No Temp > 96.8F: Yes Pain Manageable: Yes Adequeate Hydration: Yes Anesthesia Complications: No Block Receding Appropriately: Yes Patient on Ventilator: No
== END 2022-07-20 23:38 | disposition home or self-care (01) | DRG 765 ==
LOC: TRG 08:46 → LD 08:48 → TRG 10:40 → LD 10:40 → OB 07-19 15:39
PROVIDERS: ADMIT Obstetrics & Gynecology; ATTEND Obstetrics & Gynecology
PROC: 10D00Z1 Extraction of Products of Conception, Low, Open Approach (ICD-10-PCS; principal; 2022-07-19)
PROC: 30233S1 Transfusion of Nonautologous Globulin into Peripheral Vein, Percutaneous Approach (ICD-10-PCS; 2022-07-20)
PROC: 3E0234Z Introduction of Serum, Toxoid and Vaccine into Muscle, Percutaneous Approach (ICD-10-PCS; 2022-07-20)
DX: O99.824 Streptococcus B carrier state complicating childbirth (principal); O24.92 Unspecified diabetes mellitus in childbirth; O99.214 Obesity complicating childbirth; O76 Abnormality in fetal heart rate and rhythm complicating labor and delivery; Z20.822 Contact with and (suspected) exposure to COVID-19; Z3A.37 37 weeks gestation of pregnancy; Z37.0 Single live birth
CPT/HCPCS: 36415; 82962; 85014; 85018; 85027; 85461; 86850; 86900; 86901; 88307; G0378; J2354; J3490; Q9967; J0290; J0595; J0690; J1815; J1885; J2370; J2405; J2590; J2765; J2790; J7120; U0003